=== PATIENT | male | born 2000 | race Caucasian/White ===

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

== ENCOUNTER 2021-07-20 01:26 | Emergency (ER) | payer OTHER ==
[2021-07-20] MEDS ORDERED: IPRATROPIUM-ALBUTEROL 3 ML NEB INHALATION STA (01:48)
[2021-07-20] MEDS ORDERED: methylPREDNISolone SOD SUCCI 125 MG/2 ML VIAL IV STA (01:49)
[2021-07-20 01:50] VITALS: RESP 22
--- NOTE | 2021-07-20 02:03 | ED ---
General Adult HPI - General Stated complaint: Asthma attack Time Seen by Provider: 07/20/21 01:48 Source: patient, RN notes reviewed Mode of arrival: ambulatory Limitations: no limitations - History of Present Illness Initial comments: This a 21-year-old male presents emergency Department chief complaint asthma issues. Patient states he started having tightness in his chest, difficulty with asthma does not have his inhaler. Patient states that he was at his family's house with cats in which she normally takes Claritin for the cat allergens were bothering him. Patient states that his been wheezing, severe tightness. Patient reports no fever or chills no productive cough. Patient denies any nasal congestion other complaints. - Related Data Home Medications Medication Instructions Recorded Confirmed Mirtazapine [Remeron] 30 mg PO HS 11/26/16 11/26/16 [place]-3 Fatty Acids/Fish Oil [Fish 1 cap PO DAILY 11/26/16 11/26/16 Oil 1,000 mg Softgel] QUEtiapine FUMARATE [SEROquel] 300 mg PO HS 11/26/16 11/26/16 QUEtiapine [SEROquel] 50 mg PO QAM 11/26/16 11/26/16 Previous Rx's Medication Instructions Recorded predniSONE 50 mg PO DAILY #5 tab 07/20/21 Allergies Allergy/AdvReac Type Severity Reaction Status Date / Time hydromorphone HCl Allergy Intermediate Rash/Hives/ Verified 07/20/21 01:47 [From Dilaudid] Itching metoclopramide HCl AdvReac Severe Anxiety Verified 07/20/21 01:47 [From Reglan] Review of Systems ROS Statement: Those systems with pertinent positive or pertinent negative responses have been documented in the HPI. ROS Other: All systems not noted in ROS Statement are negative. Past Medical History Past Medical History: Asthma Additional Past Medical History / Comment(s): RUPTURED APPENDEX 04/2015. cat allergies. History of Any Multi-Drug Resistant Organisms: None Reported Past Surgical History: Appendectomy, Tonsillectomy Past Psychological History: Anxiety, Depression, Schizophrenia Smoking Status: Never smoker Past Alcohol Use History: None Reported Past Drug Use History: None Reported - Past Family History Mother Family Medical History: No Reported History General Exam Limitations: no limitations General appearance: alert, in no apparent distress Head exam: Present: atraumatic, normocephalic, normal inspection Eye exam: Present: normal appearance, PERRL, EOMI. Absent: scleral icterus, conjunctival injection, periorbital swelling ENT exam: Present: normal exam, normal oropharynx, mucous membranes moist Neck exam: Present: normal inspection. Absent: tenderness, meningismus, lymphadenopathy Respiratory exam: Present: respiratory distress, wheezes, decreased breath sounds. Absent: normal lung sounds bilaterally, rales, rhonchi, stridor Cardiovascular Exam: Present: normal rhythm, tachycardia, normal heart sounds. Absent: systolic murmur, diastolic murmur, rubs, gallop, clicks GI/Abdominal exam: Present: soft, normal bowel sounds. Absent: distended, tenderness, guarding, rebound, rigid Neurological exam: Present: alert, oriented X3 Skin exam: Present: warm, dry, intact, normal color. Absent: rash Course Vital Signs 07/20/21 07/20/21 01:48 01:53 Temperature 98.2 F Pulse Rate 105 H 100 Respiratory 22 Rate Blood Pressure 123/86 O2 Sat by Pulse 90 L Oximetry Medical Decision Making - Medical Decision Making Chest x-rays unremarkable. Patient was given DuoNeb treatment, Solu-Medrol is greatly improved he has some mild residual wheezing states he does not feel short of breath. Patient we discharged with prednisone, albuterol return parameters were discussed. Disposition Clinical Impression: Asthma exacerbation Disposition: HOME SELF-CARE Condition: Stable Instructions (If sedation given, give patient instructions): Asthma (ED) Additional Instructions: Please return to the Emergency Department if symptoms worsen or any other concerns. Prescriptions: predniSONE 50 mg PO DAILY #5 tab Is patient prescribed a controlled substance at d/c from ED?: No Referrals: Jarrod Elizabeth III, MD [Primary Care Provider] - 1-2 days Time of Disposition: 02:51
--- NOTE | 2021-07-20 02:40 | XR ---
EXAMINATION TYPE: XR chest 2V DATE OF EXAM: 07/20/2021 COMPARISON: 05/16/2015 HISTORY: Short of breath TECHNIQUE: FINDINGS: Heart and mediastinum are normal. Lungs are clear. Diaphragm is normal. Bony thorax appears normal. IMPRESSION: Normal chest.
[2021-07-20] MEDS ORDERED: ALBUTEROL HFA INHALER INHALATION STA (02:50)
[2021-07-20 03:09] VITALS: BP 119/57; PULSE 93; TEMP 97.5
== END 2021-07-20 03:11 | disposition home or self-care (01) ==
LOC: EC 01:26
DX: J45.901 Unspecified asthma with (acute) exacerbation (principal); F32.A Depression, unspecified; F41.9 Anxiety disorder, unspecified; F20.9 Schizophrenia, unspecified; Z79.899 Other long term (current) drug therapy
CPT/HCPCS: 94640; 71046; 99285; 96374; J2930

== ENCOUNTER 2021-11-09 01:33 | Emergency (ER) | payer OTHER ==
[2021-11-09 01:52] VITALS: TEMP 98
[2021-11-09] MEDS ORDERED: FAMOTIDINE 20 MG/2 ML VIAL IV STA (01:59)
[2021-11-09] MEDS ORDERED: diphenhydrAMINE 50 MG/ML 1 ML VIAL IVP STA (01:59)
[2021-11-09] MEDS ORDERED: methylPREDNISolone SOD SUCCI 125 MG/2 ML VIAL IV STA ×2 (01:59→03:15)
[2021-11-09] MEDS ORDERED: ALBUTEROL NEB (CONC) 2.5 MG/0.5 ML INHALATION STA (02:19)
--- NOTE | 2021-11-09 02:48 | XR ---
EXAMINATION TYPE: XR chest 1V portable DATE OF EXAM: 11/09/2021 COMPARISON: 07/20/2021 HISTORY: Short of breath TECHNIQUE: FINDINGS: Heart and mediastinum are normal. Lungs are clear. Diaphragm is normal. Bony thorax appears normal. IMPRESSION: Normal chest. No change.
[2021-11-09 02:56] VITALS: RESP 18
[2021-11-09] MEDS ORDERED: IPRATROPIUM-ALBUTEROL 3 ML NEB INHALATION STA (03:15)
[2021-11-09] MEDS ORDERED: ALBUTEROL NEBULIZED 2.5 MG/3 ML INHALATION STA (03:18)
--- NOTE | 2021-11-09 03:32 | ED ---
Allergic Reaction HPI - General Chief complaint: Allergic Reaction Stated complaint: Shortness of Breath Time Seen by Provider: 11/09/21 03:11 Source: patient, RN notes reviewed Mode of arrival: ambulatory - History of Present Illness Initial Comments: This is a pleasant 21-year-old male with a history of ALLERGIES and asthma. Patient presents to the emergency department stating that he had a wheezing episode and difficulty breathing episode prior to arrival. Patient recently here to [place] stating that his mother is staying in a hotel where they allow pets docile state. Patient states he has a rather severe pet ALLERGY. Patient forgot his inhaler and was without it. Patient states he had fairly severe wheezing until he received a breathing treatment here. Patient states his symptoms are much improved after treatment. He denies any fever or chills. No productive cough. No headache, no fever or chills, no changes in vision or hearing, no sore throat or difficulty with speech, no neck pain, no shortness of breath, no abdominal pain, no nausea or vomiting, no changes in urination or bowel movements, no numbness or tingling, no extremity pain, no skin rashes or lesions. - Related Data Home Medications Medication Instructions Recorded Confirmed Mirtazapine [Remeron] 30 mg PO HS 11/26/16 11/26/16 [place]-3 Fatty Acids/Fish Oil [Fish 1 cap PO DAILY 11/26/16 11/26/16 Oil 1,000 mg Softgel] QUEtiapine FUMARATE [SEROquel] 300 mg PO HS 11/26/16 11/26/16 QUEtiapine [SEROquel] 50 mg PO QAM 11/26/16 11/26/16 Previous Rx's Medication Instructions Recorded predniSONE 50 mg PO DAILY #5 tab 07/20/21 Albuterol Sulfate [Albuterol 2 puff PO Q6H #8.5 gm 11/09/21 Sulfate Hfa] Famotidine [Pepcid] 20 mg PO BID #30 tablet 11/09/21 predniSONE 50 mg PO DAILY #5 tab 11/09/21 Allergies Allergy/AdvReac Type Severity Reaction Status Date / Time hydromorphone HCl Allergy Intermediate Rash/Hives/ Verified 11/09/21 01:46 [From Dilaudid] Itching metoclopramide HCl AdvReac Severe Anxiety Verified 11/09/21 01:46 [From Reglan] Review of Systems ROS Statement: Those systems with pertinent positive or pertinent negative responses have been documented in the HPI. ROS Other: All systems not noted in ROS Statement are negative. Past Medical History Past Medical History: Asthma Additional Past Medical History / Comment(s): RUPTURED APPENDEX 04/2015. cat allergies. History of Any Multi-Drug Resistant Organisms: None Reported Past Surgical History: Appendectomy, Tonsillectomy Past Psychological History: Anxiety, Depression, Schizophrenia Smoking Status: Never smoker Past Alcohol Use History: None Reported Past Drug Use History: None Reported - Past Family History Mother Family Medical History: No Reported History General Exam - General Exam Comments Initial Comments: This is a healthy-appearing 21-year-old male in no acute distress at the time I'm seeing him. Does not appear to be ill or toxic. General appearance: alert, in no apparent distress Head exam: Present: atraumatic, normocephalic, normal inspection Eye exam: Present: normal appearance, PERRL, EOMI. Absent: scleral icterus, conjunctival injection, periorbital swelling ENT exam: Present: normal exam, normal oropharynx, mucous membranes dry, mucous membranes moist, TM's normal bilaterally, normal external ear exam Neck exam: Present: normal inspection, full ROM. Absent: tenderness, meningismus, lymphadenopathy Respiratory exam: Present: wheezes (Fine expiratory wheezes heard bilaterally.). Absent: respiratory distress, rales, rhonchi, stridor, chest wall tenderness, accessory muscle use, decreased breath sounds, prolonged expiratory Cardiovascular Exam: Present: regular rate, normal rhythm, normal heart sounds. Absent: systolic murmur, diastolic murmur, rubs, gallop, clicks GI/Abdominal exam: Present: soft, normal bowel sounds. Absent: distended, tenderness, guarding, rebound, rigid Extremities exam: Present: normal inspection, full ROM, normal capillary refill. Absent: tenderness, pedal edema, joint swelling, calf tenderness Back exam: Present: normal inspection Neurological exam: Present: alert, oriented X3, CN II-XII intact Psychiatric exam: Present: normal affect, normal mood Skin exam: Present: warm, dry, intact, normal color. Absent: rash Course Vital Signs 11/09/21 11/09/21 11/09/21 01:47 02:11 02:31 Temperature 98 F Pulse Rate 91 78 Respiratory 20 26 H Rate Blood Pressure 110/68 O2 Sat by Pulse 96 Oximetry 11/09/21 11/09/21 11/09/21 02:39 03:01 03:43 Temperature Pulse Rate 79 75 78 Respiratory 18 Rate Blood Pressure 119/73 O2 Sat by Pulse 95 Oximetry Medical Decision Making - Medical Decision Making Patient symptomology consistent with mild asthma exacerbation. Patient was given nebulizer treatments and corticosteroids here. Patient feeling much better at discharge. No adventitious lung sounds. No increased work of breathing. We'll place the patient on prednisone, albuterol, will give Pepcid as well as patient does have some ALLERGIES. The case was discussed in detail with ED attending physician. Presentation, findings, treatment plan discussed in detail. Dr. Andrews Patient was told to return to the ER for any signs or symptoms worsen. Told to return immediately if any other problems arise. All questions answered. Treatment plan discussed. Patient in agreement Every effort has been made to ensure accuracy of this dictation. However, due to the limitations of electronic medical records and dictation devices, errors in charting still occur. - Radiology Data Radiology results: image reviewed Disposition Clinical Impression: Asthma exacerbation Disposition: HOME SELF-CARE Condition: Good Instructions (If sedation given, give patient instructions): Asthma (ED) Additional Instructions: Refraining from entering the area where known allergens or irritants are.Follow- up with your regular physician as directed. Return to the ER immediately if any symptoms worsen, new symptoms arise, or any other problems develop. Is patient prescribed a controlled substance at d/c from ED?: No Referrals: Jarrod Elizabeth III, MD [Primary Care Provider] - 1-2 days Time of Disposition: 03:52
[2021-11-09 04:10] VITALS: BP 119/79; PULSE 77
== END 2021-11-09 04:10 | disposition home or self-care (01) ==
LOC: EC 01:33
DX: J45.901 Unspecified asthma with (acute) exacerbation (principal); F32.A Depression, unspecified; F41.9 Anxiety disorder, unspecified; F20.9 Schizophrenia, unspecified; Z79.899 Other long term (current) drug therapy
CPT/HCPCS: 99284 ×2; 96374; 96375; 94640 ×2; 71045; J2930

== ENCOUNTER 2022-07-04 17:18 | Inpatient (IN) | payer BC, MEDICAID ==
--- NOTE | 2022-07-04 18:15 | ED ---
General Adult HPI - General Chief complaint: Psychiatric Symptoms Stated complaint: Petition Time Seen by Provider: 07/04/22 17:33 Source: patient Mode of arrival: ambulatory Limitations: no limitations - History of Present Illness Initial comments: Dictation was produced using [employer] dictation software. please excuse any grammatical, word or spelling errors. Chief Complaint: 22-year-old male presents emergency department for psych evaluation History of Present Illness: Patient's 22-year-old male presents to emergency Department via law enforcement for psychiatric evaluation. Patient is a previous history of schizophrenia. He last had a psychotic episode at the age of 15. Enforcement was called by patient's aunt who stated that patient had multiple days of psychotic behavior. Patient has no other complaints at this time. Patient allegedly has been insistent that people read his poem about God. The ROS documented in this emergency department record has been reviewed and confirmed by me. Those systems with pertinent positive or negative responses have been documented in the HPI. All other systems are other negative and/or noncontributory. PHYSICAL EXAM: General Impression: Alert and oriented x3, not in acute distress HEENT: Normocephalic atraumatic, extra-ocular movements intact, pupils equal and reactive to light bilaterally, mucous membranes moist. Cardiovascular: Heart regular rate and rhythm Chest: Able to complete full sentences, no retractions, no tachypnea Abdomen: abdomen soft, non-tender, non-distended, no organomegaly Musculoskeletal: Pulses present and equal in all extremities, no peripheral edema Motor: no focal deficits noted Neurological: CN II-XII grossly intact, no focal motor or sensory deficits noted Skin: Intact with no visualized rashes Psych: Psychotic, flat affect ED course: 22-year-old male presents emergency department for EPS evaluation. Vital signs upon arrival are within acceptable limits. Patient showing psychotic features. Rest of physical examination is unremarkable. Patient medically cleared for EPS evaluation. Nursing notes and chart review was performed - Related Data Home Medications Medication Instructions Recorded Confirmed Albuterol Sulfate [Albuterol 2 puff INHALATION RT-QID PRN 07/04/22 07/04/22 Sulfate Hfa] Allergies Allergy/AdvReac Type Severity Reaction Status Date / Time hydromorphone HCl Allergy Intermediate Rash/Hives/ Verified 07/04/22 19:33 [From Dilaudid] Itching metoclopramide HCl AdvReac Severe Anxiety Verified 07/04/22 19:33 [From Reglan] Review of Systems ROS Statement: Those systems with pertinent positive or pertinent negative responses have been documented in the HPI. ROS Other: All systems not noted in ROS Statement are negative. Past Medical History Past Medical History: Asthma Additional Past Medical History / Comment(s): RUPTURED APPENDEX 04/2015. cat allergies. History of Any Multi-Drug Resistant Organisms: None Reported Past Surgical History: Appendectomy, Tonsillectomy Past Psychological History: Anxiety, Depression, Schizophrenia Smoking Status: Never smoker Past Alcohol Use History: Occasional Past Drug Use History: None Reported - Past Family History Mother Family Medical History: No Reported History General Exam Limitations: no limitations Course Vital Signs 07/04/22 17:21 Temperature 98 F Pulse Rate 124 H Respiratory 18 Rate Blood Pressure 134/77 O2 Sat by Pulse 97 Oximetry Medical Decision Making - Medical Decision Making Admitted to mental health unit - Lab Data Result diagrams: 07/06/22 06:41 07/06/22 06:41 Lab Results 07/04/22 Range/Units 20:43 Coronavirus (PCR) Not Detected (Not Detectd) Disposition Clinical Impression: Psychosis Disposition: ADMITTED IP TO THIS HOSP Condition: Fair Decision Time: 14:35
[2022-07-04] MEDS ORDERED: HALOPERIDOL LACTATE 5 MG/ML 1 ML VIAL IM PRN (21:24)
[2022-07-04] MEDS ORDERED: ACETAMINOPHEN TAB 325 MG TAB PO PRN (21:24)
[2022-07-04] MEDS ORDERED: MAGNESIUM HYDROXIDE 2,400 MG/10 ML CUP PO PRN (21:24)
[2022-07-04] MEDS ORDERED: MAG HYDROX/AL HYDROX/SIMETH 355 ML BOTTLE PO PRN (21:24)
[2022-07-04] MEDS ORDERED: haloperidoL 5 MG TAB PO PRN (21:34)
[2022-07-04] MEDS ORDERED: LORazepam 2 MG/ML INJ IM PRN (21:35)
[2022-07-04] MEDS ORDERED: ALBUTEROL INHALER 60 PUFF/8 GM INHALER (MHU) INHALATION PRN (21:36)
[2022-07-04] MEDS ORDERED: QUEtiapine 100 MG TAB PO SCH (22:00)
[2022-07-05] MEDS: LORazepam 1 MG TAB PO PRN (02:42)
[2022-07-05] MEDS ORDERED: ARIPiprazole 10 MG TAB PO STA (11:02)
[2022-07-05] MEDS ORDERED: traZODone HCL 100 MG TAB PO PRN (11:02)
--- NOTE | 2022-07-05 11:59 | P.HP ---
Psychiatric H&P - . H&P Date: 07/05/22 History & Physical: Allergies Allergy/AdvReac Type Severity Reaction Status Date / Time hydromorphone HCl Allergy Intermediate Rash/Hives/ Verified 07/04/22 19:33 [From Dilaudid] Itching metoclopramide HCl AdvReac Severe Anxiety Verified 07/04/22 19:33 [From Reglan] Vital Signs Temp 98.5 F 07/04/22 22:29 Pulse 117 H 07/04/22 22:29 Resp 18 07/04/22 22:29 BP 143/77 07/04/22 22:29 Pulse Ox 97 07/04/22 22:29 FiO2 Intake & Output 07/04/22 07/05/22 07/05/22 18:59 06:59 18:59 Weight 74.843 kg 76.43 kg Laboratory Last Values Coronavirus (PCR) Not Detected (Not Detectd) 07/04/22 20:43 07/05/22 11:58 IDENTIFYING DATA: Patient is a single, unemployed, 22-year-old male with significant history of schizoaffective disorder who presents to our hospital under petition and certification for psychotic and manic behavior. HPI: Patient presented to the hospital on 07/04/2022, brought into the hospital by family for worsening psychotic and manic behavior. Reportedly, the patient has been nonadherent with his medications since last October. The patient was reportedly receiving Abilify Aristada injection 1064 mg every 2 months but due to work scheduling conflicts has been nonadherent with his outpatient appointments, medications, and follow-ups. Over the past few months, the patient has had a significant decline in his mental health. As per EPS report, the patient was noted to be religiously preoccupied, "writing poems that Satan put in his head about God, and believing that he himself was the antichrist." The patient was subsequently petitioned and certified and admitted onto the psychiatric unit. The patient signed a release of information for his sister, mother, and father. Collateral information was obtained by the patient's mother Lynn whom he lives with. The patient's mother reports that the patient has had a significant decline in his ability to function over the past few months. She reports that around the Fall time he began decompensating. It initially started with an inability to focus, then later progressed to mormon and paranoid delusions, and eventually into the manic and psychotic symptoms he was admitted with. 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 The patient's mother also reports that the patient has not been sleeping. She approximates that he has only received 3 hours of sleep over the past week. The patient has also been displaying significant manic behaviors including grandiosity, mood lability, racing thoughts, ideas of reference, and impulsive and risk-taking behaviors. The patient destroyed his laptop and was attempting to destroy his phone however was stopped by his family. In the process of destroying his laptop, the patient was reported saying "don't worry will just buy more." The patient's mother maintains they do not have the finances to buy more. Upon evaluation on the psychiatric unit, the patient continues to be religiously preoccupied. He did receive Seroquel and Ativan last night and reports that he feels "groggy." He states that he was unable to sleep well. He continues to report that he is hearing the voice of God and Satan. Furthermore, the patient states that he is worried about being treated for bipolar disorder because he does not want people to know that the poem that he wrote was because he was manic but really was something that he was feeling instead. He is in agreement to take medications and to sign himself voluntarily on to the psychiatric unit. PAST PSYCHIATRIC HISTORY: Patient first began experiencing psychotic symptoms when he was 15 years of age. He has tried numerous psychiatric medications including Remeron, lithium, Seroquel, ADHD medications, and Abilify. He reports that he has had at least 4 inpatient psychiatric hospitalizations starting when he was 15 years old at [facility]. He is currently not open with [facility] due to his nonadherence with outpatient follow-up. The patient reports 2 prior attempts at suicide by hanging. He states he attempted to hang himself when he was 15 and again when he was 17. PMH: Past Medical History: Asthma Additional Past Medical History / Comment(s): RUPTURED APPENDEX 04/2015. cat allergies. History of Any Multi-Drug Resistant Organisms: None Reported Past Surgical History: Appendectomy, Tonsillectomy Past Psychological History: Anxiety, Depression, Schizophrenia Smoking Status: Never smoker Past Alcohol Use History: Occasional Past Drug Use History: None Reported ALLERGIES: Hydromorphone, metoclopramide CHEMICAL DEPENDENCY HISTORY: The patient denies any tobacco, alcohol, marijuana, or illicit drug use. This is also confirmed by his mother. FAMILY PSYCHIATRIC/SUBSTANCE USE HISTORY: As per mother, there is no significant history of psychiatric illness in the family. SOCIAL HISTORY: Patient was born and raised in [place]. He completed up to the 10th grade. He is single, never , and has no children. He reports a [employer] amena. He currently lives with his mother, 2 sisters, and 2 half- brothers. His mother and father are currently . 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 MENTAL STATUS EXAM: General Appearance: Patient appears to be stated age is alert, directable, and attempts to cooperate. Patient appears to have slightly disheveled hygiene and grooming. Behavior: Patient is seated without any agitated behavior. Psychomotor activity is normal. Eye contact is intense. Speech: Patient's speech is fluent and nonpressured. Mood/Affect: Patient reports their mood is "groggy," affect is congruent however somewhat expansive. Suicidality/Homicidality: Patient is denying both suicidal or homicidal ideation. Perceptions: Patient denies any visual hallucinations however the patient does endorse auditory hallucinations in the form of God and Satan talking to him. Though content/process: The patient displays significant mormon practice patient, grandiose delusions, religiously themed delusions, and the flight of ideas. Memory and concentration: AOX3, grossly intact for the purposes of this session. Concentration is grossly poor. Judgment and insight: Poor STRENGTHS/WEAKNESSES: Strength is that the patient has a supportive family. Weakness the patient has severe mental illness and nonadherence with treatment. INTELLECT: average IMPRESSIONS: Schizoaffective disorder, bipolar type PLAN: -Patient is admitted under voluntary status to MHU for stabilization of psychiatric symptoms and safety. Patient signed adult voluntary form and medication consent and is placed in patient's chart. -Medications: We will start Abilify 10 mg by mouth daily with plans to transition him back to Abilify maintena/[facility] for schizoaffective disorder Lamictal 25 mg daily at bedtime for mood Requip 0.25 mg by mouth at bedtime for restless leg Trazodone 100 mg by mouth at bedtime when necessary for insomnia -Ativan Haldol PRN for agitation/aggression -Patient was informed of the risks, benefits and side effects of the medication and patient verbally consented to taking the medications. Patient signed med consent form and was placed in chart. -Internal Medicine consult to perform medical evaluation and physical. -SW on board for discharge planning. Encourage patient to participate in groups to work on coping skills. 07/05/22 11:58
[2022-07-05] MEDS: lamoTRIgine 25 MG TAB PO SCH (20:49)
--- NOTE | 2022-07-05 23:34 | P.HPIM ---
History of Present Illness H&P Date: 07/05/22 This is a pleasant 22 year old male who follows with Dr Elizabeth outpatient. Presents to the hospital by police escort for psychiatric evaluation, petitioned. 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 States that since then he has been wr iting a novel. He also reports hearing intruding thoughts about "going to hell" around that same time. He states he wrote a poem and god and delivering a message he received from god. He states he showed the poem to his mom and aunt. who called the police who then escorted him to the hospital. He states he did yell at the officer and was "overly excited." He reports a medical history of an appendix rupture with appendectomy, history of allergy induced asthma controlled with inhaler. He reports being diagnosed as ADHD around the age of 9, he does state that he has a diagnosis of bipolar disorder and schizoaffective. He has been non compliant in the past. He discusses noncompliance with psychiatric medications. Reports restless leg syndrome which he states is sometimes uncontrolled with requipd. Also reports having anxiety, and also social anxiety. Has a history of suicide attempt by hanging twice in the past. He reports occasional alcohol use, nothing recently. Denies history of tobacco use or marijuana use. Currently he is not working, states he lives with his mom and stepdad and has multiple siblings. He doesn't seem to endorse a good relationship with his siblings. Some are half siblings. He states he feels wheezy sometimes but now better since he was able to use his inhaler. Denies shortness of breath, denies chest pain. No nausea, vomiting, no diarrhea. Denies fever, chills. He denies suicidal or homicidal ideations. Continues to hear voices of God and Satan. He does report trouble sleeping last night and had requested medication to help. Since he states he has been mostly sleeping all day. Afebrile, heart rate 117, blood pressure 143/77, 97% room air. REVIEW OF SYSTEMS: CONSTITUTIONAL: No fever, no malaise, no fatigue. HEENT: No recent visual problems or hearing problems. Denied any sore throat. CARDIOVASCULAR: No chest pain, orthopnea, PND, no palpitations, no syncope. PULMONARY: No shortness of breath, no cough, no hemoptysis. GASTROINTESTINAL: No diarrhea, no nausea, no vomiting, no abdominal pain. NEUROLOGICAL: No headaches, no weakness, no numbness. HEMATOLOGICAL: Denies any bleeding or petechiae. GENITOURINARY: Denies any burning micturition, frequency, or urgency. MUSCULOSKELETAL/RHEUMATOLOGICAL: Denies joint pain, joint swelling, or edema. ENDOCRINE: Denies any polyuria or polydipsia. The rest of the 14-point review of systems is negative. PHYSICAL EXAMINATION: GENERAL: The patient is alert and oriented x3, not in any acute distress. Well developed, well nourished. Somewhat dishelved apperance. Speech is fluent. Patients is mostly religiously preoccupied during interview. HEENT: Pupils are round and equally reacting to light. EOMI. No scleral icterus. No conjunctival pallor. Normocephalic, atraumatic. No pharyngeal erythema. No thyromegaly. CARDIOVASCULAR: S1 and S2 present. No murmurs, rubs, or gallops. Regular rate and rhythm PULMONARY: Chest is clear to auscultation, no wheezing or crackles. ABDOMEN: Soft, nontender, nondistended, normoactive bowel sounds. No palpable organomegaly. MUSCULOSKELETAL: No joint swelling or deformity. EXTREMITIES: No cyanosis, clubbing, or pedal edema. NEUROLOGICAL: Gross neurological examination did not reveal any focal deficits. SKIN: No rashes. Assessment and Plan Assessment Bipolar/Schizoaffective disorder managed by primary Tachycardia suspect from anxiety, continue to monitor Anxiety/depression history History asthma, stable not in acute exacerbation patient will be resumed on home inhaler Medication noncompliance History of suicidal ideation with attempt GI prophylaxis DVT prophylaxis early ambulation Full Code AM labs and urine/drug screen pending for review. Thank you for this consultation, we will follow along as needed. The impression and plan of care has been dictated by Maureen Baldwin, Nurse Practitioner as directed. Dr. Carlos MD I have performed a history and physical examination and medical decision making of this patient, discussed the same with the dictator, and agree with the dictators assessment and plan as written, documented as a scribe. Based on total visit time, I have performed more than 50% of this visit. Past Medical History Past Medical History: Asthma Additional Past Medical History / Comment(s): RUPTURED APPENDEX 04/2015. cat allergies. History of Any Multi-Drug Resistant Organisms: None Reported Past Surgical History: Appendectomy, Tonsillectomy Past Psychological History: Anxiety, Depression, Schizophrenia Additional Psychological History / Comment(s): seeing a counselor for anxiety and adjustment Smoking Status: Never smoker Past Alcohol Use History: Occasional Past Drug Use History: None Reported - Past Family History Mother Family Medical History: No Reported History Medications and Allergies Home Medications Medication Instructions Recorded Confirmed Type Albuterol Sulfate [Albuterol 2 puff INHALATION RT-QID PRN 07/04/22 07/04/22 History Sulfate Hfa] Allergies Allergy/AdvReac Type Severity Reaction Status Date / Time hydromorphone HCl Allergy Intermediate Rash/Hives/ Verified 07/04/22 19:33 [From Dilaudid] Itching metoclopramide HCl AdvReac Severe Anxiety Verified 07/04/22 19:33 [From Reglan] Physical Exam Vitals: Vital Signs Temp Pulse Pulse Resp BP BP Pulse Ox 07/04/22 22:29 98.5 F 117 H 18 143/77 97 07/04/22 17:21 98 F 124 H 18 134/77 97 Thrombosis Risk Factor Assmnt - Choose All That Apply Any of the Below Risk Factors Present?: No Assessment and Plan Time with Patient: Less than 30
[2022-07-06] MEDS: LORazepam 1 MG TAB PO PRN (00:46)
[2022-07-06 07:02] LABS: Basophils # (A) 0.1 k/uL (0-0.2); Basophils % (A) 1 %; Eosinophils # (A) 0.6 k/uL (0-0.7); Eosinophils % (A) 7 %; HCT 52.2 % (39.0-53.0); HGB 17.7 gm/dL (13.0-17.5); Lymphocytes % (A) 34 %; MCH 29.6 pg (25.0-35.0); MCV 87.1 fL (80.0-100.0); Mean Platelet Volume 8.3; Monocytes # (A) 0.6 k/uL (0-1.0); Monocytes % (A) 7 %; Neutrophils # (A) 4.2 k/uL (1.3-7.7); Neutrophils % (A) 48 %; Platelet Count 216 k/uL (150-450); RDW 12.5 % (11.5-15.5); WBC 8.7 k/uL (3.8-10.6)
[2022-07-06 07:59] LABS: ALT 26 U/L (4-49); AST 29 U/L (17-59); African American GFR (CKD) >90 (>60 ml/min/1.73 sqM); Albumin 4.7 g/dL (3.5-5.0); Alkaline Phosphatase 56 U/L (38-126); Anion Gap 6 mmol/L; Blood Urea Nitrogen 19 mg/dL (9-20); Calcium 9.2 mg/dL (8.4-10.2); Carbon Dioxide 30 mmol/L (22-30); Chloride 105 mmol/L (98-107); Glucose 83 mg/dL (74-99); Non-African American GFR(CKD) >90 (>60 ml/min/1.73 sqM); Potassium 4.4 mmol/L (3.5-5.1); Sodium 141 mmol/L (137-145); Total Bilirubin 0.6 mg/dL (0.2-1.3); Total Protein 6.9 g/dL (6.3-8.2)
[2022-07-06] MEDS ORDERED: ARIPiprazole 15 MG TAB PO SCH (09:00)
--- NOTE | 2022-07-06 10:07 | P.PN ---
Progress Note - Text Progress Note Date: 07/06/22 Interval History: Patient was seen resting in bed and agreeable to speak with the grant writer in the office. Currently the patient is reporting he is feeling better. He states he continues to have difficulty with sleep and reports it takes him hours to fall asleep. He denies any suicidal or homicidal ideation, intention, and/or plan. He continues to be religiously preoccupied stating that "God has told me through the poem that the voices I hear outside of the poem are not Him." He denies any current auditory or visual hallucinations since admission. He reports no paranoia but continues to be fixated on the "poem" and baptism themes. He has been adherent with his medications and is not reporting any side effect. Mental Status Exam: General Appearance: Patient appears to be stated age is alert, directable, and cooperative. Behavior: Patient is calmly seated without any agitated behavior. Speech: Patient's speech is fluent and nonpressured. Mood/Affect: Mood is improving mildly, affect is congruent and constricted. Suicidality/Homicidality: Patient denies having any suicidal or homicidal ideation intent or plan. Perceptions: Patient denies any visual hallucinations and denies any auditory hallucinations Though content/process: Patient continues to be very religiously preoccupied and endorses bizarre and grandiose delusions. Memory and concentration: AOX3, grossly intact for the purposes of this session Judgment and insight: Improving mildly Vital Signs Temp 97.8 F 07/06/22 00:46 Pulse 116 H 07/06/22 00:46 Resp 16 07/06/22 00:46 BP 136/90 07/06/22 00:46 Pulse Ox 98 07/06/22 00:46 FiO2 Laboratory Results - Last 24 Hours 07/06/22 07/06/22 06:41 06:41 WBC 8.7 RBC 6.00 H Hgb 17.7 H Hct 52.2 MCV 87.1 MCH 29.6 MCHC 34.0 RDW 12.5 Plt Count 216 MPV 8.3 Neutrophils % 48 Lymphocytes % 34 Monocytes % 7 Eosinophils % 7 Basophils % 1 Neutrophils # 4.2 Lymphocytes # 3.0 Monocytes # 0.6 Eosinophils # 0.6 Basophils # 0.1 Sodium 141 Potassium 4.4 Chloride 105 Carbon Dioxide 30 Anion Gap 6 BUN 19 Creatinine 1.08 Est GFR (CKD-EPI)AfAm >90 Est GFR (CKD-EPI)NonAf >90 Glucose 83 Calcium 9.2 Total Bilirubin 0.6 AST 29 ALT 26 Alkaline Phosphatase 56 Total Protein 6.9 Albumin 4.7 TSH 1.340 Assessment Schizoaffective disorder, bipolar type Plan: -Patient continues to meet criteria for inpatient psychiatric admission for symptom stabilization and safety. Patient has signed adult voluntary form and medication consent and was placed in patient's chart. -Medications: Increase Abilify to 15 mg daily for schizoaffective disorder and titrate to 20 mg tomorrow in anticipation for [facility] transition. Lamictal 25 mg daily at bedtime for mood Requip 0.25 mg by mouth at bedtime for restless leg Increase trazodone to 150 mg by mouth at bedtime when necessary for insomnia -When necessary Ativan and Haldol for agitation/aggression. -SW on board for discharge planning. Encouraged the patient to participate in milieu.
[2022-07-06 14:53] LABS: Chol/HDL Ratio 2.35 Ratio; LDL Cholesterol,Calculated 39.4 mg/dL (0.0-131.0); VLDL Calculation 18.72 mg/dL (5.00-40.00)
[2022-07-06] MEDS: lamoTRIgine 25 MG TAB PO SCH (19:56)
[2022-07-06] MEDS: traZODone HCL 50 MG TAB PO PRN (19:56)
[2022-07-07] MEDS: traZODone HCL 50 MG TAB PO PRN (00:44)
--- NOTE | 2022-07-07 09:41 | P.PN ---
Progress Note - Text Progress Note Date: 07/07/22 Interval History: Patient was seen resting in bed and agreeable to speak with the production underwriter in the office. The patient reports he is feeling significantly better. He reports no suicidal or homicidal ideation, intention, and/or plan. He reports no auditory or visual hallucinations. He reports no paranoia. He does report some ideas of reference however states the messages from God to him are not just for him but for everybody. He states the messages come through the television and radio. He otherwise has been adherent with his medications and reports no side effects. He states he was able to sleep better with the Trazodone. He is in agreement with plans to get back on abilify [facility]. Patient denies any chest pain, SOB, or palpitations however does have an elevated pulse. Mental Status Exam: General Appearance: Patient appears to be stated age is alert, directable, and cooperative. Behavior: Patient is calmly seated without any agitated behavior. Speech: Patient's speech is fluent and nonpressured. Mood/Affect: Mood is improving mildly, affect is congruent and less constricted. Suicidality/Homicidality: Patient denies having any suicidal or homicidal ideation intent or plan. Perceptions: Patient denies any visual hallucinations and denies any auditory hallucinations Though content/process: Patient continues to be adventist preoccupied but more grounded in reality. Memory and concentration: AOX3, grossly intact for the purposes of this session Judgment and insight: Improving mildly Vital Signs Temp 97.8 F 07/06/22 00:46 Pulse 116 H 07/06/22 00:46 Resp 16 07/06/22 00:46 BP 136/90 07/06/22 00:46 Pulse Ox 98 07/06/22 00:46 FiO2 Laboratory Results - Last 24 Hours 07/06/22 07/06/22 06:41 06:[address] Glu mg/dL 101 Hemoglobin A1c 5.1 Triglycerides 93.60 Cholesterol 101.00 LDL Cholesterol, Calc 39.4 VLDL Cholesterol, Calc 18.72 HDL Cholesterol 42.90 Cholesterol/HDL Ratio 2.35 Assessment Schizoaffective disorder, bipolar type Plan: -Patient continues to meet criteria for inpatient psychiatric admission for symptom stabilization and safety. Patient has signed adult voluntary form and medication consent and was placed in patient's chart. -Will order EKG to assess tachycardia. -Medications: Increase Abilify to 20 mg in anticipation for [facility] transition. Increase Lamictal to 50 mg daily at bedtime for mood Requip 0.25 mg by mouth at bedtime for restless leg Increase trazodone to 200 mg by mouth at bedtime for insomnia -When necessary Ativan and Haldol for agitation/aggression. -SW on board for discharge planning. Encouraged the patient to participate in milieu.
[2022-07-07] MEDS: traZODone HCL 100 MG TAB PO SCH (20:41)
[2022-07-07] MEDS: lamoTRIgine 25 MG TAB PO SCH (20:41)
[2022-07-07] MEDS: LORazepam 1 MG TAB PO PRN (21:48)
[2022-07-08 06:46] VITALS: RESP 18; TEMP 98.1
[2022-07-08] MEDS ORDERED: ARIPiprazole IM 400 MG VIAL (NO COST) PHARMACY STOCK IM ONE (09:45)
[2022-07-08] MEDS ORDERED: ARIPiprazole IM SYRINGE 400 MG (NO CHARGE) PHARMACY STOCK IM ONE (10:00)
--- NOTE | 2022-07-08 10:56 | P.PN ---
Progress Note - Text Progress Note Date: 07/08/22 Interval History: Patient was seen resting in bed and agreeable to speak with the sports writer in the office. The patient reports that he is doing well. He is tolerating his medications well. He continues to report some difficulty with sleep however is not endorsing any suicidal or homicidal ideation, intention, and/or plan. He reports no auditory or visual hallucinations. He denies any paranoia or other delusions. He has been in adherent with his medication and is not endorsing any significant side effects. He reports no confucianism preoccupation to this provider today. He has been noted to speak of mormonism to other peers however did not mention any to staff. He is agreeable to his transition to a long- acting injectable today. Mental Status Exam: General Appearance: Patient appears to be stated age is alert, directable, and cooperative. Behavior: Patient is calmly seated without any agitated behavior. Speech: Patient's speech is fluent and nonpressured. Mood/Affect: Mood is improving mildly, affect is congruent and less constricted. Suicidality/Homicidality: Patient denies having any suicidal or homicidal ideation intent or plan. Perceptions: Patient denies any visual hallucinations and denies any auditory hallucinations Though content/process: Patient continues to be confucianism preoccupied but more grounded in reality. Memory and concentration: AOX3, grossly intact for the purposes of this session Judgment and insight: Improving mildly Vital Signs Temp 98.1 F 07/08/22 06:46 Pulse 71 07/08/22 06:46 Resp 18 07/08/22 06:46 BP 122/57 07/08/22 06:46 Pulse Ox 98 07/08/22 06:46 FiO2 Assessment Schizoaffective disorder, bipolar type Plan: -Patient continues to meet criteria for inpatient psychiatric admission for symptom stabilization and safety. Patient has signed adult voluntary form and medication consent and was placed in patient's chart. -EKG revealed normal sinus rhythm with a QTC of 413 ms. Vitals stable today. -Medications: Continue Abilify 20 mg by mouth daily. Administer Abilify maintena 400 mg IM today. Continue Lamictal 50 mg daily at bedtime for mood Increase Requip to 0.5 mg by mouth at bedtime for restless leg Continue trazodone 200 mg by mouth at bedtime for insomnia -When necessary Ativan and Haldol for agitation/aggression. -SW on board for discharge planning. Encouraged the patient to participate in milieu.
[2022-07-08] MEDS ORDERED: MAG HYDROX/AL HYDROX/SIMETH 30 ML CUP PO PRN (16:49)
[2022-07-08] MEDS: traZODone HCL 100 MG TAB PO SCH (20:07)
[2022-07-08] MEDS: lamoTRIgine 25 MG TAB PO SCH (20:07)
[2022-07-09 06:13] VITALS: BP 119/63; PULSE 98
--- NOTE | 2022-07-09 11:16 | P.DS ---
Providers Date of admission: 07/04/22 21:19 Expected date of discharge: 07/09/22 Attending physician: Don Varela MD Consults: 07/04/22 21:24 Consult Physician Routine Consulting Provider: Rancho Vo Consult Reason/Comments: medical management Do you want consulting provider notified?: Yes, Notify in am Primary care physician: Jarrod Elizabeth - Discharge Diagnosis(es) (1) Schizoaffective disorder, bipolar type Current Visit: Yes Status: Acute Priority: High Hospital Course: Admission HPI: Patient is a single, unemployed, 22-year-old male with significant history of schizoaffective disorder who presents to our hospital under petition and certification for psychotic and manic behavior. Patient presented to the hospital on 07/04/2022, brought into the hospital by family for worsening psychotic and manic behavior. Reportedly, the patient has been nonadherent with his medications since last October. The patient was reportedly receiving Abilify Aristada injection 1064 mg every 2 months but due to work scheduling conflicts has been nonadherent with his outpatient appointments, medications, and follow-ups. Over the past few months, the patient has had a significant decline in his mental health. As per EPS report, the patient was noted to be religiously preoccupied, "writing poems that Satan put in his head about God, and believing that he himself was the antichrist." The patient was subsequently petitioned and certified and admitted onto the psychiatric unit. The patient signed a release of information for his sister, mother, and father. Collateral information was obtained by the patient's mother Lynn whom he lives with. The patient's mother reports that the patient has had a significant decline in his ability to function over the past few months. She reports that around the Fall time he began decompensating. It initially started with an inability to focus, then later progressed to spiritism and paranoid delusions, and eventually into the manic and psychotic symptoms he was admitted with. 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 The patient's mother also reports that the patient has not been sleeping. She approximates that he has only received 3 hours of sleep over the past week. The patient has also been displaying significant manic behaviors including grandiosity, mood lability, racing thoughts, ideas of reference, and impulsive and risk-taking behaviors. The patient destroyed his laptop and was attempting to destroy his phone however was stopped by his family. In the process of destroying his laptop, the patient was reported saying "don't worry will just buy more." The patient's mother maintains they do not have the finances to buy more. Upon evaluation on the psychiatric unit, the patient continues to be religiously preoccupied. He did receive Seroquel and Ativan last night and reports that he feels "groggy." He states that he was unable to sleep well. He continues to report that he is hearing the voice of God and Satan. Furthermore, the patient states that he is worried about being treated for bipolar disorder because he does not want people to know that the poem that he wrote was because he was man ic but really was something that he was feeling instead. He is in agreement to take medications and to sign himself voluntarily on to the psychiatric unit. Patient first began experiencing psychotic symptoms when he was 15 years of age. He has tried numerous psychiatric medications including Remeron, lithium, Seroquel, ADHD medications, and Abilify. He reports that he has had at least 4 inpatient psychiatric hospitalizations starting when he was 15 years old at [facility]. He is currently not open with [facility] due to his nonadherence with outpatient follow-up. The patient reports 2 prior attempts at suicide by hanging. He states he attempted to hang himself when he was 15 and again when he was 17. Hospital course: Upon admission to the unit patient was initially very religiously preoccupied, not sleeping, and responding to internal stimuli. Patient was however directable and agreeable to commence treatment. Patient got along well with other patients on the unit and followed unit protocol. Patient was compliant with the medications and denied any side effects throughout hospital course. Patient was started on Abilify with plans to transition back to a long-acting injectable A bilify maintena, Lamictal for mood stabilization, Requip for restless leg, and trazodone for insomnia. Patient spoke of his stressors and engaged in therapy both group and individual. Patient was also seen by medical team for history and physical exam. The patient was eventually transitioned back to Abilify maintena after his medications were titrated. He received IM abilify maintena 400 mg IM on 07/08/2022. Throughout the course of the hospital physician, the patient is with significant improvement in regards to his target symptoms of psychosis and mood. He became more linear and logical in conversation and less religiously preoccupied and delusional. On the day of discharge, the patient is not reporting any suicidal or homicidal ideation, intention, and/or plan. He is not reporting any auditory or visual hallucinations. He is denying any paranoia or other delusions. He denies any access to firearms or weapons. The patient does not have a significant history of substance abuse however was counseled great length on abstaining from all substances including alcohol, tobacco, marijuana. He was counseled on his medications and the importance for regular compliance and was encouraged to follow-up with outpatient appointment for mental health and for primary care. Prior to discharge, family meeting was arranged by social research assistant to answer my questions and ensure safety. Mental status exam: General Appearance: Patient appears to be stated age is alert, pleasant, and cooperative. Patient is in no acute distress and has fair hygiene and grooming Behavior: Patient is calmly seated without any agitated behavior. Speech: Patient's speech is fluent and nonpressured. Mood/Affect: Patient reports their mood is "much better", affect is congruent and euthymic to bright. Suicidality/Homicidality: Patient denies having any suicidal or homicidal ideation intent or plan. Perceptions: Patient denies any auditory or visual hallucinations. Though content/process: There is no evidence of any delusional thought content and thought process is linear and goal-directed. Patient is future oriented Memory and concentration: AOX3, grossly intact for the purposes of this session. Can spell "WORLD" backwards correctly. Judgment and insight: Improved with guarded prognosis Impression: Schizoaffective disorder, bipolar type Plan: -Continue with discharge today as patient has improved and stabilized psychiatrically and is not currently an imminent threat to himself and/or others. Patient will remain at chronically elevated risk for harm to self and/or others due to his history of nonadherence with treatment and severity of symptoms. -Continue medications: Trazodone 200 mg daily at bedtime for insomnia Lamictal 50 mg by mouth at bedtime for mood Requip 0.5 mg by mouth at bedtime for restless legs Abilify 20 mg by mouth daily for 15 days. Patient received Abilify maintena 400 mg IM on 07/08/2022. Next dose due on 08/05/2022. -Patient was counseled on the need for medication compliance and appropriate follow-up at mental health and also primary care for medical issues. Patient verbalized understanding and agreed. -Social work to arrange for and conduct family meeting to ensure safety upon discharge and answer any questions/concerns. Social work also to arrange for patients follow up appointments with [facility] for psychiatric care along with follow up with primary care provider. -Patient counseled on abstaining from recreational drugs and marijuana and alcohol. Was informed/educated on the adverse effects on their physical and mental health. Patient verbally agreed and understood. -Patient was instructed to return to the hospital or seek immediate medical care if their psychiatric or medical symptoms do worsen or reoccur. -Psychoeducation and supportive therapy provided to patient. Risks and benefits of pharmacological treatment versus the risks and benefits of nontreatment weight and discussed. Informed consent discussion held. Common side effects of psychotropics discussed such as, but not limited to headache, GI disturbance, sexual dysfunction, movement disorders, sedation, and orthostatic hypotension. Life threatening and blackbox warnings of prescribed medications also discussed. Potential risks of operating a vehicle or heavy machinery discussed with patient at length. Advised on importance of compliance and a reliable and responsible manner. Patient advised to review FDA consumer labeling of all medications prior to taking. Patient verbalized understanding of potential risks, and agrees with current treatment plan. Patient advised to medically contact physician/emergency personnel if any acute changes in condition occur. Vital Signs Temp 98.1 F 07/08/22 06:46 Pulse 98 07/09/22 04:30 Resp 18 07/09/22 04:30 BP 119/63 07/09/22 04:30 Pulse Ox 99 07/09/22 04:30 FiO2 Laboratory Results WBC 8.7 k/uL (3.8-10.6) 07/06/22 06:41 RBC 6.00 m/uL (4.30-5.90) H 07/06/22 06:41 Hgb 17.7 gm/dL (13.0-17.5) H 07/06/22 06:41 Hct 52.2 % (39.0-53.0) 07/06/22 06:41 MCV 87.1 fL (80.0-100.0) 07/06/22 06:41 MCH 29.6 pg (25.0-35.0) 07/06/22 06:41 MCHC 34.0 g/dL (31.0-37.0) 07/06/22 06:41 RDW 12.5 % (11.5-15.5) 07/06/22 06:41 Plt Count 216 k/uL (150-450) 07/06/22 06:41 MPV 8.3 07/06/22 06:41 Neutrophils % 48 % 07/06/22 06:41 Lymphocytes % 34 % 07/06/22 06:41 Monocytes % 7 % 07/06/22 06:41 Eosinophils % 7 % 07/06/22 06:41 Basophils % 1 % 07/06/22 06:41 Neutrophils # 4.2 k/uL (1.3-7.7) 07/06/22 06:41 Lymphocytes # 3.0 k/uL (1.0-4.8) 07/06/22 06:41 Monocytes # 0.6 k/uL (0-1.0) 07/06/22 06:41 Eosinophils # 0.6 k/uL (0-0.7) 07/06/22 06:41 Basophils # 0.1 k/uL (0-0.2) 07/06/22 06:41 Sodium 141 mmol/L (137-145) 07/06/22 06:41 Potassium 4.4 mmol/L (3.5-5.1) 07/06/22 06:41 Chloride 105 mmol/L (98-107) 07/06/22 06:41 Carbon Dioxide 30 mmol/L (22-30) 07/06/22 06:41 Anion Gap 6 mmol/L 07/06/22 06:41 BUN 19 mg/dL (9-20) 07/06/22 06:41 Creatinine 1.08 mg/dL (0.66-1.25) 07/06/22 06:41 Est GFR (CKD-EPI)AfAm >90 (>60 ml/min/1.73 sqM) 07/06/22 06:41 Est GFR (CKD-EPI)NonAf >90 (>60 ml/min/1.73 sqM) 07/06/22 06:41 Glucose 83 mg/dL (74-99) 07/06/22 06:[address] Glu mg/dL 101 07/06/22 06:41 Hemoglobin A1c 5.1 % (0.0-6.0) 07/06/22 06:41 Calcium 9.2 mg/dL (8.4-10.2) 07/06/22 06:41 Total Bilirubin 0.6 mg/dL (0.2-1.3) 07/06/22 06:41 AST 29 U/L (17-59) 07/06/22 06:41 ALT 26 U/L (4-49) 07/06/22 06:41 Alkaline Phosphatase 56 U/L (38-126) 07/06/22 06:41 Total Protein 6.9 g/dL (6.3-8.2) 07/06/22 06:41 Albumin 4.7 g/dL (3.5-5.0) 07/06/22 06:41 Triglycerides 93.60 mg/dL (0.00-149.00) 07/06/22 06:41 Cholesterol 101.00 mg/dL (0.00-200.00) 07/06/22 06:41 LDL Cholesterol, Calc 39.4 mg/dL (0.0-131.0) 07/06/22 06:41 VLDL Cholesterol, Calc 18.72 mg/dL (5.00-40.00) 07/06/22 06:41 HDL Cholesterol 42.90 mg/dL (40.00-60.00) 07/06/22 06:41 Cholesterol/HDL Ratio 2.35 Ratio 07/06/22 06:41 TSH 1.340 mIU/L (0.465-4.680) 07/06/22 06:41 Coronavirus (PCR) Not Detected (Not Detectd) 07/04/22 20:43 Allergies Allergy/AdvReac Type Severity Reaction Status Date / Time hydromorphone HCl Allergy Intermediate Rash/Hives/ Verified 07/04/22 19:33 [From Dilaudid] Itching metoclopramide HCl AdvReac Severe Anxiety Verified 07/04/22 19:33 [From Reglan] Patient Condition at Discharge: Stable Plan - Discharge Summary Discharge Rx Participant: Yes New Discharge Prescriptions: New ARIPiprazole [Abilify] 20 mg PO DAILY 15 Days tab traZODone HCL [Desyrel] 200 mg PO HS 30 Days tab lamoTRIgine [LaMICtal] 50 mg PO HS 30 Days tab rOPINIRole HCL [Requip] 0.5 mg PO HS 30 Days tab ARIPiprazole IM [Abilify Maintena] 400 mg IM QMONTHLY #1 each Continue Albuterol Sulfate [Albuterol Sulfate Hfa] 2 puff INHALATION RT-QID PRN PRN Reason: Shortness Of Breath Discharge Medication List Albuterol Sulfate [Albuterol Sulfate Hfa] 2 puff INHALATION RT-QID PRN 07/04/22 [History] ARIPiprazole IM [Abilify Maintena] 400 mg IM QMONTHLY #1 each 07/09/22 [Rx] ARIPiprazole [Abilify] 20 mg PO DAILY 15 Days tab 07/09/22 [Rx] lamoTRIgine [LaMICtal] 50 mg PO HS 30 Days tab 07/09/22 [Rx] rOPINIRole HCL [Requip] 0.5 mg PO HS 30 Days tab 07/09/22 [Rx] traZODone HCL [Desyrel] 200 mg PO HS 30 Days tab 07/09/22 [Rx] Follow up Appointment(s)/Referral(s): [facility] [Outside] - 07/13/22 12:30 pm (with Cyn) Jarrod Elizabeth III, MD [Primary Care Provider] - 1-2 days Patient Instructions/Handouts: Psychotic Disorder (DC) Activity/Diet/Wound Care/Special Instructions: Avoid the use of street drugs and alcohol. Take all prescriptions as prescribed. When you are in need of refills on your medications, please contact your medical provider and/or outpatient psychiatrist to have this done. Please go to scheduled outpatient appointment for aftercare treatment. If symptoms return or become worse, call the crisis line at and/or go to the nearest emergency room for evaluation Discharge Disposition: HOME SELF-CARE
== END 2022-07-09 12:22 | disposition home or self-care (01) | DRG 885 ==
LOC: EC 17:18 → 3MHU 21:19
PROVIDERS: ADMIT Psychiatry & Neurology Psychiatry; ATTEND Psychiatry & Neurology Psychiatry
DX: F25.0 Schizoaffective disorder, bipolar type (principal); G25.81 Restless legs syndrome; J45.998 Other asthma; F40.10 Social phobia, unspecified; G47.00 Insomnia, unspecified; Z20.822 Contact with and (suspected) exposure to COVID-19; Z91.14 Patient's other noncompliance with medication regimen; Z91.51 Personal history of suicidal behavior; Z79.899 Other long term (current) drug therapy; Z88.5 Allergy status to narcotic agent; Z88.8 Allergy status to other drugs, medicaments and biological substances
CPT/HCPCS: 80053; 80061; 82075; 83036; 84443; 85025; 87635; 93005; 99285

== ENCOUNTER 2023-08-12 10:33 | Inpatient (IN) | payer BC, MEDICAID, OTHER ==
[2023-08-12] MEDS ORDERED: IBUPROFEN 600 MG TAB PO STA (14:14)
[2023-08-12] MEDS ORDERED: ACETAMINOPHEN TAB 325 MG TAB PO STA (14:14)
--- NOTE | 2023-08-12 14:17 | ED ---
Psych HPI - General Source: patient, police, RN notes reviewed Mode of arrival: ambulatory Limitations: no limitations <Jacob Victoria - Last Filed: 08/12/23 14:14> <Jose Antonio Andrews - Last Filed: 08/13/23 02:34> - General Chief Complaint: Psychiatric Symptoms Stated Complaint: Petitioned Time Seen by Provider: 08/12/23 10:57 - History of Present Illness Initial Comments: 23-year-old male presents emergency department with family for psychiatric evaluation. Patient is petitioned by family. Patient is very paranoid, history of schizoaffective. Patient has not received an injection in several months. Family states that he is not stable at home. Patient denies being suicidal homicidal. (Jacob Victoria) - Related Data Home Medications Medication Instructions Recorded Confirmed No Known Home Medications 08/12/23 08/13/23 Allergies Allergy/AdvReac Type Severity Reaction Status Date / Time hydromorphone HCl Allergy Intermediate Rash/Hives/ Verified 08/13/23 01:44 [From Dilaudid] Itching metoclopramide HCl AdvReac Severe Anxiety Verified 08/13/23 01:44 [From Reglan] Review of Systems ROS Other: All systems not noted in ROS Statement are negative. <Jacob Victoria - Last Filed: 08/12/23 14:14> ROS Other: All systems not noted in ROS Statement are negative. <Jose Antonio Andrews - Last Filed: 08/13/23 02:34> ROS Statement: Those systems with pertinent positive or pertinent negative responses have been documented in the HPI. Past Medical History Past Medical History: Asthma Additional Past Medical History / Comment(s): RUPTURED APPENDEX 04/2015. cat allergies. History of Any Multi-Drug Resistant Organisms: None Reported Past Surgical History: Appendectomy, Tonsillectomy Past Psychological History: Anxiety, Depression, Schizophrenia Smoking Status: Never smoker Past Alcohol Use History: Occasional Past Drug Use History: None Reported - Past Family History Mother Family Medical History: No Reported History <Jacob Victoria - Last Filed: 08/12/23 14:14> General Exam Limitations: no limitations General appearance: alert, in no apparent distress, anxious Head exam: Present: atraumatic, normocephalic, normal inspection Eye exam: Present: normal appearance, PERRL, EOMI. Absent: scleral icterus, conjunctival injection, periorbital swelling ENT exam: Present: normal exam, normal oropharynx, mucous membranes moist Neck exam: Present: normal inspection, full ROM. Absent: tenderness, meningismus, lymphadenopathy Respiratory exam: Present: normal lung sounds bilaterally. Absent: respiratory distress, wheezes, rales, rhonchi, stridor Cardiovascular Exam: Present: normal rhythm, tachycardia, normal heart sounds. Absent: systolic murmur, diastolic murmur, rubs, gallop, clicks GI/Abdominal exam: Present: soft, normal bowel sounds. Absent: distended, tenderness, guarding, rebound, rigid Neurological exam: Present: alert, oriented X3, reflexes normal. Absent: motor sensory deficit Psychiatric exam: Present: anxious Skin exam: Present: warm, dry, intact, normal color. Absent: rash <Jacob Victoria - Last Filed: 08/12/23 14:14> Course Vital Signs 08/12/23 08/12/23 08/12/23 10:46 15:37 17:55 Temperature 99.9 F H 98.2 F 97.6 F Pulse Rate 125 H 106 H Respiratory 20 20 Rate Blood Pressure 149/81 140/89 O2 Sat by Pulse 99 99 Oximetry Medical Decision Making <Jacob Victoria - Last Filed: 08/12/23 14:14> <Jose Antonio Andrews - Last Filed: 08/13/23 02:34> - Medical Decision Making Was pt. sent in by a medical professional or institution (Dr. PA, POLLUTION CONTROL TECHNICIAN, urgent care, hospital, or longterm...) When possible be specific @ -No Did you speak to anyone other than the patient for history (EMS, parent, family, police, friend...)? What history was obtained from this source @ -Mother and father providing history] Did you review nursing and triage notes (agree or disagree)? Why? @ -I reviewed and agree with nursing and triage notes Were old charts reviewed (outside hosp., previous admission, EMS record, old EKG, old radiological studies, urgent care reports/EKG's, longterm records)? Report findings @ -No old charts were reviewed Differential Diagnosis (chest pain, altered mental status, abdominal pain women, abdominal pain men, vaginal bleeding, weakness, fever, dyspnea, syncope, headache, dizziness, GI bleed, back pain, seizure, CVA, palpatations, mental health, musculoskeletal)? @ -Differential Mental Health Depression, anxiety, bipolar, psychosis, schizophrenia, borderline personality, situational depression, adjustment disorder, behavioral disorder, brain tumor, malingering, substance abuse, encephalopathy, medication reaction, dementia, hypothyroidism, degenerative neurologic disorder, lupus.... This is not meant to be all-inclusive list EKG interpreted by me (3pts min.). @ -None X-rays interpreted by me (1pt min.). @ -None done CT interpreted by me (1pt min.). @ -None done U/S interpreted by me (1pt. min.). @ -None done What testing was considered but not performed or refused? (CT, X-rays, U/S, labs)? Why? @ -None What meds were considered but not given or refused? Why? @ -None Did you discuss the management of the patient with other professionals (professionals i.e. , PA, POLLUTION CONTROL TECHNICIAN, lab, RT, psych nurse, social service director, career services representative, teacher, security vehicle patrol officer, immigration case worker)? Give summary @ -[EPS evaluated the patient petitioned the patient in which patient will be admitted for psychiatric treatment. Was smoking cessation discussed for >3mins.? @ -No Was critical care preformed (if so, how long)? @ -No Were there social determinants of health that impacted care today? How? (Homelessness, low income, unemployed, alcoholism, drug addiction, transportation, low edu. Level, literacy, decrease access to med. care, [facility], rehab)? @ -No Was there de-escalation of care discussed even if they declined (Discuss DNR or withdrawal of care, Hospice)? DNR status @ -No What co-morbidities impacted this encounter? (DM, HTN, Smoking, COPD, CAD, Cancer, CVA, ARF, Chemo, Hep., AIDS, mental health diagnosis, sleep apnea, morbid obesity)? @ -None Was patient admitted / discharged? Hospital course, mention meds given and route, prescriptions, significant lab abnormalities, going to OR and other pertinent info. @ -[Admitted to psychiatric services for further treatment management Undiagnosed new problem with uncertain prognosis? @ -No Drug Therapy requiring intensive monitoring for toxicity (Heparin, Nitro, Insulin, Cardizem)? @ -No Were any procedures done? @ -No Diagnosis/symptom? @ -Schizoaffective] Acute, or Chronic, or Acute on Chronic? @ -[Acute Uncomplicated (without systemic symptoms) or Complicated (systemic symptoms)? @ -Complicated t Side effects of treatment? @ -[No Exacerbation, Progression, or Severe Exacerbation? @ -No Poses a threat to life or bodily function? How? (Chest pain, [place], [place], pneumonia, PE, COPD, DKA, ARF, appy, cholecystitis, CVA, Diverticulitis, Homicidal, Suicidal, threat to staff... and all critical care pts) @ -No (Jacob Victoria) I did see and evaluate the patient and completed the clinical certification (Jose Antonio Andrews) - Lab Data Lab Results 08/12/23 Range/Units 11:34 Influenza Type A (PCR) Not Detected (Not Detectd) Influenza Type B (PCR) Not Detected (Not Detectd) RSV (PCR) Not Detected (Not Detectd) SARS-CoV-2 (PCR) Not Detected (Not Detectd) Disposition Time of Disposition: 14:17 <Jacob Victoria - Last Filed: 08/12/23 14:14> <Jose Antonio Andrews - Last Filed: 08/13/23 02:34> Clinical Impression: Psychosis, Schizoaffective disorder, bipolar type Disposition: TRANSFER TO PSYCH HOSP/UNIT
[2023-08-12] MEDS ORDERED: IBUPROFEN 600 MG TAB PO PRN (18:53)
[2023-08-12] MEDS ORDERED: haloperidoL 5 MG TAB PO PRN (18:53)
[2023-08-12] MEDS ORDERED: MAG HYDROX/AL HYDROX/SIMETH 30 ML CUP PO PRN (18:53)
[2023-08-12] MEDS ORDERED: ACETAMINOPHEN TAB 325 MG TAB PO PRN (18:53)
[2023-08-12] MEDS ORDERED: MAGNESIUM HYDROXIDE 2,400 MG/30 ML CUP PO PRN (18:53)
[2023-08-12] MEDS ORDERED: LORazepam 2 MG/ML INJ IM PRN (18:53)
[2023-08-12] MEDS ORDERED: LORazepam 1 MG TAB PO PRN (18:53)
[2023-08-12] MEDS ORDERED: HALOPERIDOL LACTATE 5 MG/ML 1 ML VIAL IM PRN (18:53)
[2023-08-12] MEDS ORDERED: NICOTINE 14MG/24HR PATCH TRANSDERM SCH (19:00)
--- NOTE | 2023-08-13 05:58 | P.MDCNMH ---
History of Present Illness H&P Date: 08/13/23 Chief Complaint: Medical eval 23-year-old male brought in by family for psych evaluation patient is noncompliant with his medications experiencing some paranoid ideation. Patient himself denies any fevers chills nausea vomiting coughing denies any chest pain trouble breathing abdominal pain changes in bowel or urinary habits Patient denies tobacco smoking illicit drugs or heavy alcohol review of systems Pertinent positives as noted in HPI. All other systems were reviewed and are negative on exam Constitutional: No acute distress, Eyes: Anicteric sclerae, moist conjunctiva, Pupils equal round reactive to light ENMT: NC/AT Oropharynx clear, no erythema, or exudates Neck: Supple, no masses, or JVD No carotid bruits No thyromegaly Lungs: Clear to auscultation Clear to percussion Normal respiratory effort, no accessory muscle use Cardiovascular: Heart regular in rate and rhythm, No murmurs, gallops, or rubs No peripheral edema Abdominal: Soft Nontender, no guarding, rebound or rigidity Abdomen moving with respiration Normoactive bowel sounds Extremities: No digital cyanosis No clubbing Pedal pulses intact and symmetrical Radial pulses intact and symmetrical No calf tenderness Psychiatric: Alert and oriented to person, place and time Neuro Muscles Strength 5/5 in all 4 extremities Sensation to light touch grossly present throughout Cranial nerves II-XII grossly intact Past Medical History Past Medical History: Asthma Additional Past Medical History / Comment(s): RUPTURED APPENDEX 04/2015. cat allergies. History of Any Multi-Drug Resistant Organisms: None Reported Past Surgical History: Appendectomy, Tonsillectomy Past Psychological History: Anxiety, Depression, Schizophrenia Additional Psychological History / Comment(s): seeing a counselor for anxiety and adjustment Smoking Status: Never smoker Past Alcohol Use History: Occasional Past Drug Use History: None Reported - Past Family History Mother Family Medical History: No Reported History Medications and Allergies Home Medications Medication Instructions Recorded Confirmed Type No Known Home Medications 08/12/23 08/13/23 History Allergies Allergy/AdvReac Type Severity Reaction Status Date / Time hydromorphone HCl Allergy Intermediate Rash/Hives/ Verified 08/13/23 01:44 [From Dilaudid] Itching metoclopramide HCl AdvReac Severe Anxiety Verified 08/13/23 01:44 [From Reglan] Physical Exam Vitals: Vital Signs Temp Pulse Pulse Resp BP BP Pulse Ox 08/13/23 04:45 97.2 F L 103 H 15 117/61 08/12/23 19:35 98.4 F 89 18 135/77 95 08/12/23 17:55 97.6 F 106 H 20 140/89 99 08/12/23 15:37 98.2 F 08/12/23 10:46 99.9 F H 125 H 20 149/81 99 Intake and Output 08/12/23 08/12/23 08/13/23 14:59 22:59 06:59 Other: Weight 81.647 kg 81.647 kg Cranial Nerve Examination - Cranial Nerves Cranial Nerve II- Optic: Intact Cranial Nerve III- Oculomotor: Intact Cranial Nerve IV- Trochlear: Intact Cranial Nerve V- Trigeminal: Intact Cranial Nerve - Abducens: Intact Cranial Nerve VII- Facial: Intact Cranial Nerve VIII- Auditory: Intact Cranial Nerve IX- Glossopharyngeal: Intact Cranial Nerve X- Vagus: Intact Cranial Nerve XI- Accessory: Intact Cranial Nerve XII- Hypoglossal: Intact Assessment and Plan Assessment: Paranoid ideation Management per psych Stable from medical standpoint Follow-up labs Acute viral respiratory panel negative for COVID influenza and RSV Thank you for this consultation
[2023-08-13] MEDS: ARIPiprazole 10 MG TAB PO SCH (08:32)
[2023-08-13 09:04] LABS: Amphetamine Screen,Urine Not Detected (NotDetected); Barbiturate Screen,Urine Not Detected (NotDetected); Benzodiazepines Screen,Urine Not Detected (NotDetected); Cocaine Screen,Urine Not Detected (NotDetected); Methadone Screen, Urine Not Detected (NotDetected); Opiate Screen,Urine Not Detected (NotDetected); Oxycodone Screen, Urine Not Detected (NotDetected); Phencyclidine Screen,Urine Not Detected (NotDetected); Tricyclic Antidepressant,Urine Not Detected (NotDetected); Urn Cannabinoid Scrn Not Detected (NotDetected)
--- NOTE | 2023-08-13 10:48 | P.HP ---
Psychiatric H&P - . History & Physical: 08/13/23 10:43 IDENTIFYING DATA: Patient is a 23-year-old male with a history of schizoaffective disorder: Bipolar type who works full-time and lives with his family HPI: Patient presented to the hospital on a petition for paranoia. Patient states that "I acted in ways that wasn't stable" states that amena is important to him and he may have come out too strong. He does endorse paranoia. He also reports some thought broadcasting yesterday. Has been noncompliant with his medications. Patient denies any suicidal or homicidal ideations intent or plan. At this time patient denies any auditory or visual hallucinations. Patient denies any flight of ideas racing thoughts and increased in goal directed behavior. Denies substance use recently PAST PSYCHIATRIC HISTORY: History of schizoaffective disorder: Bipolar type. Admitted in 2021 for psychosis and stephy and noncompliance. Was on Abilify long-acting injection in the past. Has also been on trazodone and Lamictal in the past.. He is noncompliant with medications [Patient denies any previous psychiatric hospitalizations.] [Patient denies any psychiatric outpatient follow-up.] Has had multiple suicide attempts in the past by hanging himself. Last suicide attempt was at age 15. PMH:asthma ALLERGIES: as per EMR CHEMICAL DEPENDENCY HISTORY: as per HPI FAMILY PSYCHIATRIC/SUBSTANCE USE HISTORY: Mother has depression, no substance use, mother and sister have attempted suicide in the past SOCIAL HISTORY: Family, works full-time, no legal issues Allergies Allergy/AdvReac Type Severity Reaction Status Date / Time hydromorphone HCl Allergy Intermediate Rash/Hives/ Verified 08/13/23 01:44 [From Dilaudid] Itching metoclopramide HCl AdvReac Severe Anxiety Verified 08/13/23 01:44 [From Reglan] Vital Signs Temp 97.2 F L 08/13/23 04:45 Pulse 103 H 08/13/23 04:45 Resp 15 08/13/23 04:45 BP 117/61 08/13/23 04:45 Pulse Ox 95 08/12/23 19:35 FiO2 Intake & Output 08/12/23 08/13/23 08/13/23 18:59 06:59 18:59 Weight 81.647 kg 81.647 kg Laboratory Last Values Urine Opiates Screen Not Detected (NotDetected) 08/13/23 08:35 Ur Oxycodone Screen Not Detected (NotDetected) 08/13/23 08:35 Urine Methadone Screen Not Detected (NotDetected) 08/13/23 08:35 Ur Barbiturates Screen Not Detected (NotDetected) 08/13/23 08:35 U Tricyclic Antidepress Not Detected (NotDetected) 08/13/23 08:35 Ur Phencyclidine Scrn Not Detected (NotDetected) 08/13/23 08:35 Ur Amphetamines Screen Not Detected (NotDetected) 08/13/23 08:35 U Methamphetamines Scrn Not Detected (NotDetected) 08/13/23 08:35 U Benzodiazepines Scrn Not Detected (NotDetected) 08/13/23 08:35 Urine Cocaine Screen Not Detected (NotDetected) 08/13/23 08:35 U Marijuana (THC) Screen Not Detected (NotDetected) 08/13/23 08:35 Influenza Type A (PCR) Not Detected (Not Detectd) 08/12/23 11:34 Influenza Type B (PCR) Not Detected (Not Detectd) 08/12/23 11:34 RSV (PCR) Not Detected (Not Detectd) 08/12/23 11:34 SARS-CoV-2 (PCR) Not Detected (Not Detectd) 08/12/23 11:34 MENTAL STATUS EXAM: General Appearance: Patient appears to be a 23-year-old male stated age is alert, [directable, and attempts to cooperate]. Behavior: Patient is seated without any agitated behavior. [] Speech: Patient's speech is [fluent and nonpressured.] Frequent pauses. Mood/Affect: Patient reports their mood is conflicted", affect is congruent and constricted. Suicidality/Homicidality: Patient denies having any homicidal ideation intent or plan. [Denies any suicidal ideations intent or plan] Perceptions: Patient denies any visual hallucinations [and denies any auditory hallucinations] Though content/process: Paranoid delusions elicited. Thought blocking present. Linear thought process Memory and concentration: AOX3, grossly intact for the purposes of this session. Can spell "WORLD" backwards Judgment and insight: [poor] STRENGTHS/WEAKNESSES: strength is that patient has strong family support. Weakness is that patient see if noncompliance INTELLECT: [average] IMPRESSIONS: Schizoaffective disorder: Bipolar type PLAN: -[A second certification was completed. Will defer to primary team whether patient signs in voluntary or court order should be obtained -Medications : Will start patient on Abilify 10 mg daily with plan for long- acting injection -Ativan [and Haldol] PRN for agitation/aggression -Patient was informed of the risks, benefits and side effects of the medication and patient verbally consented to taking the medications. -Internal Medicine consult to perform medical evaluation and physical. -SW on board for discharge planning. Encourage patient to participate in groups to work on coping skills. [Will await deferral and court date.] []
[2023-08-13 10:58] LABS: Basophils # (A) 0.1 k/uL (0-0.2); Basophils % (A) 1 %; Eosinophils # (A) 0.6 k/uL (0-0.7); Eosinophils % (A) 9 %; HCT 48.4 % (39.0-53.0); HGB 16.4 gm/dL (13.0-17.5); Lymphocytes # (A) 1.9 k/uL (1.0-4.8); Lymphocytes % (A) 28 %; MCH 29.5 pg (25.0-35.0); MCHC 33.9 g/dL (31.0-37.0); MCV 87.2 fL (80.0-100.0); Mean Platelet Volume 7.9; Monocytes # (A) 0.5 k/uL (0-1.0); Monocytes % (A) 7 %; Neutrophils # (A) 3.6 k/uL (1.3-7.7); Neutrophils % (A) 53 %; Platelet Count 192 k/uL (150-450); RBC 5.55 m/uL (4.30-5.90); RDW 13.2 % (11.5-15.5); WBC 6.8 k/uL (3.8-10.6)
[2023-08-13 12:07] LABS: ALT 31 U/L (4-49); AST 49 U/L (17-59); African American GFR (CKD) >90 (>60 ml/min/1.73 sqM); Albumin 4.6 g/dL (3.5-5.0); Alkaline Phosphatase 53 U/L (38-126); Anion Gap 6 mmol/L; Blood Urea Nitrogen 17 mg/dL (9-20); Calcium 9.5 mg/dL (8.4-10.2); Carbon Dioxide 31 mmol/L (22-30); Chloride 106 mmol/L (98-107); Glucose 87 mg/dL (74-99); Non-African American GFR(CKD) >90 (>60 ml/min/1.73 sqM); Potassium 4.7 mmol/L (3.5-5.1); Sodium 143 mmol/L (137-145); Total Bilirubin 0.6 mg/dL (0.2-1.3)
[2023-08-13 14:28] LABS: Appearance,Urine Clear (Clear); Bilirubin,Urine Negative (Negative); Blood,Urine Negative (Negative); Color,Urine Yellow; Glucose,Urine (UA) Negative (Negative); Ketones,Urine Negative (Negative); Leukocyte Esterase,Urine Negative (Negative); Nitrite,Urine Negative (Negative); PH, Urine 5.5 (5.0-8.0); Protein,Urine Trace (Negative); Specific Gravity,Urine 1.035 (1.001-1.035); Urobilinogen,Urine <2.0 mg/dL (<2.0)
[2023-08-13 23:03] LABS: Chol/HDL Ratio 2.33 Ratio; LDL Cholesterol,Calculated 46.1 mg/dL (0.0-131.0); VLDL Calculation 17.76 mg/dL (5.00-40.00)
[2023-08-14] MEDS: ARIPiprazole 10 MG TAB PO SCH (08:16)
--- NOTE | 2023-08-14 09:27 | P.PN ---
Progress Note - Text Interval history: Patient was seen [wandering the hallways] and was directable and agreeable to speak with flex o writer operator. Denies paranoia. At this time patient denies any suicidal or homicidal ideations intent or plan. Denies any Auditory or visual hallucinations. Patient denies any side effects from the medications and has been compliant with meds. Mental status exam: General Appearance: [Patient appears to be older than stated age is alert, directable, and cooperative.] Behavior: [No agitated behavior. Patient is calm and directable] Speech: Patient's speech is fluent and nonpressured. Mood/Affect: Mood is improving mildly, affect is congruent and constricted. Suicidality/Homicidality: Patient denies having any suicidal or homicidal ideation intent or plan. Perceptions: Patient denies any auditory or visual hallucinations. Though content/process: [There is no evidence of any delusional thought content and thought process is linear and goal-directed.] Memory and concentration: AOX3, grossly intact for the purposes of this session Judgment and insight: improving mildly Assessment/Plan: Continue with current diagnosis. Patient continues to meet criteria for inpatient psychiatric admission for symptom stabilization and safety.[Patient will be maintained on current psychotropic medication regimen.] Monitor for medication compliance and for any psychotropic medication side effects. Will continue to monitor ongoing response to treatment. Encouraged participation in milieu.
[2023-08-15] MEDS: ARIPiprazole 10 MG TAB PO SCH (08:08)
--- NOTE | 2023-08-15 13:40 | P.PN ---
Progress Note - Text Progress Note Date: 08/15/23 Interval history: Patient was seen today and agreeable to speak to advertising copy writer for psychiatric follow- up. he claims that he is doing a bit better today. spoke about a "brothered sheth" that came to his mind. he was fairly preoccupied with this and beleives that his grandfather was part of them. states that he is sleeping a bit better, was agreeable to have his abilify adjusted. denies any Si or HI at this time. denies any AH or VH. claims that his appetite is improving. not reporting any side effects. rambles at times and is illogical. MENTAL STATUS EXAM: General Appearance: Patient appears to be a 23-year-old male stated age is alert, directable, and attempts to cooperate. Behavior: Patient is seated without any agitated behavior. more cooperative today, poor eye contact Speech: Patient's speech is fluent and nonpressured. Frequent pauses. improving Mood/Affect: Patient reports their mood is "a bit better", affect is congruent and constricted. Suicidality/Homicidality: Patient denies having any homicidal ideation intent or plan. Denies any suicidal ideations intent or plan Perceptions: Patient denies any visual hallucinations and denies any auditory hallucinations Though content/process: Paranoid delusions elicited. Thought blocking present. rambles at times. Memory and concentration: AOX3, grossly intact for the purposes of this session Judgment and insight: Poor, improving mildly IMPRESSIONS: Schizoaffective disorder: Bipolar type PLAN: -A second certification was completed. At this time patient is admitted involuntarily to mental health unit. -Medications : increase and change to Abilify 15 mg qhs with plan for long- acting injection -Ativan and Haldol PRN for agitation/aggression -SW on board for discharge planning. Encourage patient to participate in groups to work on coping skills. Will await deferral and court date.
[2023-08-15] MEDS: ARIPiprazole 15 MG TAB PO SCH (20:33)
--- NOTE | 2023-08-16 11:46 | P.PN ---
Progress Note - Text Progress Note Date: 08/16/23 Interval history: Patient was seen today and agreeable to speak to keno writer for psychiatric follow- up. Taking part in group today. He claims that he is doing a bit better today. He continues to be fairly concrete, poverty of content. States that he talked with his mom over the phone and things have been going well. states that he is sleeping a bit better, claims his appetite is improving. We spoke about transitioning onto a long-acting injection, patient was agreeable to this. He also will be meeting with his city attorney today for a deferral. Denies any Si or HI at this time. denies any AH or VH. not reporting any side effects. MENTAL STATUS EXAM: General Appearance: Patient appears to be thin, a 23-year-old male stated age is alert, directable, and attempts to cooperate. Behavior: Patient is seated without any agitated behavior. more cooperative today, improving eye contact Speech: Patient's speech is fluent and nonpressured. Frequent pauses. improving Mood/Affect: Patient reports their mood is "better", affect is congruent and constricted, improving mildly. Suicidality/Homicidality: Patient denies having any homicidal ideation intent or plan. Denies any suicidal ideations intent or plan Perceptions: Patient denies any visual hallucinations and denies any auditory hallucinations Though content/process: Not endorsing delusions today, not religiously preoccupied. Fairly concrete, poverty of content Memory and concentration: AOX3, grossly intact for the purposes of this session Judgment and insight: Poor, improving mildly IMPRESSIONS: Schizoaffective disorder, Bipolar type PLAN: -A second certification was completed. At this time patient is admitted involuntarily to mental health unit. -Medications : Continue with Abilify 15 mg qhs for mood stabilization, patient is agreeable to receive Abilify Maintenna scheduled for tomorrow. -Ativan and Haldol PRN for agitation/aggression -SW on board for discharge planning. Encourage patient to participate in groups to work on coping skills. Patient will have deferral with city attorney on 08/16, likely discharge versus Tuesday back home if patient is improving psychiatrically.
[2023-08-16] MEDS: ARIPiprazole 15 MG TAB PO SCH (21:07)
--- NOTE | 2023-08-17 11:52 | P.PN ---
Progress Note - Text Progress Note Date: 08/17/23 Interval history: Patient was seen today and agreeable to speak to copy writer for psychiatric follow- up. Taking part in group today. He claims that he is feeling "good" today. Pt states he felt stressed last night talking to family. He continues to be fairly concrete, poverty of content, improving mildly. States that he talked with his mom over the phone leaves that he is able to return there after being discharged. states that he is sleeping a bit better, but having difficulty initiating sleep. claims his appetite is improving. Pt reports having anxiety last night. Pt reports having some racing thoughts. Pt did not differ with business attorney. Denies any Si or HI at this time. denies any AH or VH. not reporting any side effects. MENTAL STATUS EXAM: General Appearance: Patient appears to be thin, a 23-year-old male stated age is alert, directable, and attempts to cooperate. Continues to have poor eye contact. Behavior: Patient is seated without any agitated behavior. cooperative today Speech: Patient's speech is fluent and nonpressured. Frequent pauses. improving Mood/Affect: Patient reports their mood is "better", affect is congruent and constricted, improving mildly. Suicidality/Homicidality: Patient denies having any homicidal ideation intent or plan. Denies any suicidal ideations intent or plan Perceptions: Patient denies any visual hallucinations and denies any auditory hallucinations Though content/process: Not endorsing delusions today, not religiously preoccupied. Fairly concrete, poverty of content, improving mildly Memory and concentration: AOX3, grossly intact for the purposes of this session Judgment and insight: Poor, improving mildly IMPRESSIONS: Schizoaffective disorder, Bipolar type PLAN: -A second certification was completed. At this time patient is admitted involuntarily to mental health unit. -Medications : Increasing with Abilify 20 mg qhs for mood stabilization. Starting trazodone 50mg qhs sleep/mood -Ativan and Haldol PRN for agitation/aggression -SW on board for discharge planning. Encourage patient to participate in groups to work on coping skills. Patient did not defer, full court hearing is on 08/24.
[2023-08-17] MEDS ORDERED: traZODone HCL 50 MG TAB PO SCH (21:00)
[2023-08-17] MEDS: LORazepam 1 MG TAB PO PRN (22:56)
[2023-08-18] MEDS ORDERED: ARIPiprazole 15 MG TAB PO ONE (13:46)
--- NOTE | 2023-08-18 13:51 | P.PN ---
Progress Note - Text Progress Note Date: 08/18/23 Interval history: Patient was seen today and agreeable to speak to fiction and nonfiction prose writer for psychiatric follow- up. Patient has been taking part in many groups, has been interacting more with other patients. He continues to have a constricted affect, continues to have poor eye contact. He continues to be fairly concrete in his responses. He states that last night he had a difficult night and states that he was not able to speak very long to his family. He states that he is having racing thoughts and was feeling "off" last night and was not able to sleep. We spoke about changing the him Abilify to daytime dosing which he is okay to try and also increasing trazodone. States that he feeling a bit anxious today, denies any depression. claims his appetite is improving. Pt reports having some racing thoughts. Pt did not differ with trade mark attorney, currently awaiting court hearing. Denies any Si or HI at this time. denies any AH or VH. not reporting any side effects. Patient states that he is agreeable to be transitioned back onto the long-acting injection Abilify Maintenna. MENTAL STATUS EXAM: General Appearance: Patient appears to be thin, a 23-year-old male stated age is alert, directable, and attempts to cooperate. Continues to have poor eye contact. Behavior: Patient is seated without any agitated behavior. constricted, poor eye contact Speech: Patient's speech is fluent and nonpressured. Frequent pauses. Mood/Affect: Patient reports their mood is "anxious", affect is congruent and constricted, improving mildly. Suicidality/Homicidality: Patient denies having any homicidal ideation intent or plan. Denies any suicidal ideations intent or plan Perceptions: Patient denies any visual hallucinations and denies any auditory hallucinations Though content/process: Not endorsing delusions today, not religiously preoccupied. Fairly concrete, poverty of content, improving mildly Memory and concentration: AOX3, grossly intact for the purposes of this session Judgment and insight: Poor, improving mildly IMPRESSIONS: Schizoaffective disorder, Bipolar type PLAN: -A second certification was completed. At this time patient is admitted involuntarily to mental health unit. -Medications : Decrease Abilify 15 mg qhs for mood stabilization. Will attempt to transition patient back onto Abilify Maintenna once patient is stabilized prior to discharge. Increase trazodone 100 mg qhs sleep/mood -Ativan and Haldol PRN for agitation/aggression -SW on board for discharge planning. Encourage patient to participate in groups to work on coping skills. Patient did not defer, full court hearing is on 08/24.
[2023-08-18] MEDS: traZODone HCL 100 MG TAB PO SCH (20:01)
[2023-08-19] MEDS: ARIPiprazole 15 MG TAB PO SCH (09:23)
--- NOTE | 2023-08-19 12:03 | P.PN ---
Progress Note - Text Progress Note Date: 08/19/23 Interval history: Patient was seen today in group and was agreeable to speak to screen writer. Patient has been taking part in many groups, has been interacting more with other patients. He continues to have a constricted affect, continues to have poor eye contact. He continues to be fairly concrete in his responses. States that he feeling "better", denies any depression. claims his appetite is good. Pt initally did not sign deferral, but wants to now, currently waiting on claim attorney. Denies any SI or HI at this time. denies any AH or VH. not reporting any side effects. Patient states that he is agreeable to be transitioned back onto the long-acting injection Abilify Maintenna. MENTAL STATUS EXAM: General Appearance: Patient appears to be thin, a 23-year-old male stated age is alert, directable, and attempts to cooperate. Continues to have poor eye contact. Behavior: Patient is seated without any agitated behavior. constricted, poor eye contact, mildly improving Speech: Patient's speech is fluent and nonpressured. Frequent pauses, mildly improving. Mood/Affect: Patient reports their mood is "anxious", affect is congruent and constricted, improving mildly. Suicidality/Homicidality: Patient denies having any homicidal ideation intent or plan. Denies any suicidal ideations intent or plan Perceptions: Patient denies any visual hallucinations and denies any auditory hallucinations Though content/process: Not endorsing delusions today, not religiously preoccupied. Fairly concrete, poverty of content, improving mildly Memory and concentration: AOX3, grossly intact for the purposes of this session Judgment and insight: Poor, improving mildly IMPRESSIONS: Schizoaffective disorder, Bipolar type PLAN: -A second certification was completed. At this time patient is admitted involuntarily to mental health unit. -Medications : -Abilify 15 mg qhs for mood stabilization. Will attempt to transition patient back onto Abilify Maintenna this tuesday. -Continue trazodone 100 mg qhs sleep/mood -Ativan and Haldol PRN for agitation/aggression -SW on board for discharge planning. Encourage patient to participate in groups to work on coping skills. Patient awaiting claim attorney to defer, full court hearing is on 08/24. if patient defers then likely discharge tuesday back home.
[2023-08-19] MEDS: traZODone HCL 100 MG TAB PO SCH (19:59)
[2023-08-19] MEDS: LORazepam 1 MG TAB PO PRN (21:48)
[2023-08-20] MEDS: ARIPiprazole 15 MG TAB PO SCH (08:29)
--- NOTE | 2023-08-20 11:28 | P.PN ---
Progress Note - Text Progress Note Date: 08/20/23 Interval history: Patient was seen today wandering the hallways and agreeable to speak to automatic typewriter inspector. Patient claims that he just visited with his mother on the unit. States that she was mainly asking about discharge and how he is doing. He claims that he is doing a bit better today. Claims that he is still willing to take the long- acting injection tomorrow. Claims that his medications have been doing well. States that he woke up in the middle the night and had to take an Ativan to go back to sleep. We spoke about the need to attempt to wean him off the Ativan and have him sleep on trazodone, he agreed to have the trazodone increased today. Patient has been taking part in many groups, has been interacting more with other patients. claims his appetite is good. Deferred with his securities attorney on 08/19. Denies any SI or HI at this time. denies any AH or VH. not reporting any side effects. MENTAL STATUS EXAM: General Appearance: Patient appears to be thin, a 23-year-old male stated age is alert, directable, and attempts to cooperate. Continues to have mildly improving eye contact. Behavior: Patient is seated without any agitated behavior. constricted, mildly improving Speech: Patient's speech is fluent and nonpressured. Frequent pauses, mildly improving. Mood/Affect: Patient reports their mood is "ok", affect is congruent and constricted, improving mildly. Suicidality/Homicidality: Patient denies having any homicidal ideation intent or plan. Denies any suicidal ideations intent or plan Perceptions: Patient denies any visual hallucinations and denies any auditory hallucinations Though content/process: Not endorsing delusions today, not religiously preoccup ied. Fairly concrete, poverty of content, improving mildly Memory and concentration: AOX3, grossly intact for the purposes of this session Judgment and insight: improving mildly IMPRESSIONS: Schizoaffective disorder, Bipolar type PLAN: -A second certification was completed. At this time patient is admitted involuntarily to mental health unit. -Medications : -Abilify 15 mg qhs for mood stabilization. Will transition patient back onto Abilify Maintenna on 08/21 to ensure compliance. -Increase trazodone 200 mg qhs sleep/mood -Ativan and Haldol PRN for agitation/aggression -SW on board for discharge planning. Encourage patient to participate in groups to work on coping skills. Patient deferred with his securities attorney on 08/19. if patient defers then likely discharge tuesday back home once patient is transitioned onto the long-acting injection.
[2023-08-20] MEDS ORDERED: traZODone HCL 50 MG TAB PO SCH (21:00)
[2023-08-20] MEDS: traZODone HCL 100 MG TAB PO SCH (21:05)
[2023-08-21 06:28] VITALS: RESP 18; TEMP 98
[2023-08-21] MEDS: ARIPiprazole 15 MG TAB PO SCH (07:54)
[2023-08-21] MEDS ORDERED: ARIPiprazole IM SYRINGE 400 MG (NO CHARGE) PHARMACY STOCK IM ONE (11:00)
--- NOTE | 2023-08-21 11:51 | P.PN ---
Progress Note - Text Progress Note Date: 08/21/23 Interval history: Patient was seen today wandering the hallways and agreeable to speak to automatic typewriter inspector. Patient states that he did receive the injection today, tolerated it well. States that he is doing better overall with regards to his mood and racing thoughts. She has been interacting more with people on the unit. Claims that he did sleep a bit better last night and wants to continue on the same medications for nighttime. He was fairly excited for going home tomorrow if he is able to be discharged. claims his appetite is good. Denies any SI or HI at this time. denies any AH or VH. not reporting any side effects. MENTAL STATUS EXAM: General Appearance: Patient appears to be thin, a 23-year-old male stated age is alert, directable, and attempts to cooperate. Continues to have mildly improving eye contact. Behavior: Patient is seated without any agitated behavior. constricted, mildly improving Speech: Patient's speech is fluent and nonpressured, mildly improving. Mood/Affect: Patient reports their mood is "ok", affect is congruent and constricted, improving mildly. Suicidality/Homicidality: Patient denies having any homicidal ideation intent or plan. Denies any suicidal ideations intent or plan Perceptions: Patient denies any visual hallucinations and denies any auditory hallucinations Though content/process: Not endorsing delusions today, not religiously preoccupied. Fairly concrete, poverty of content, improving mildly Memory and concentration: AOX3, grossly intact for the purposes of this session Judgment and insight: improving mildly IMPRESSIONS: Schizoaffective disorder, Bipolar type PLAN: -A second certification was completed. At this time patient is admitted involuntarily to mental health unit. -Medications : -Abilify 15 mg qhs for mood stabilization. Patient received Abilify Maintenna 400 mg IM on 08/21 to ensure compliance, next dose will be due on 09/18. -Increase trazodone 200 mg qhs sleep/mood -Ativan and Haldol PRN for agitation/aggression -SW on board for discharge planning. Encourage patient to participate in groups to work on coping skills. Patient deferred with his trust and estates attorney on 08/19. if patient defers then likely discharge tuesday back home
[2023-08-21] MEDS: traZODone HCL 100 MG TAB PO SCH (20:02)
[2023-08-22 06:52] VITALS: BP 100/55; PULSE 95
[2023-08-22] MEDS: ARIPiprazole 15 MG TAB PO SCH (08:15)
--- NOTE | 2023-08-22 09:51 | P.DS ---
Providers Date of admission: 08/12/23 18:22 Expected date of discharge: 08/22/23 Attending physician: Vern Jorge MD Consults: 08/12/23 18:53 Consult Physician Routine Consulting Provider: Kameron Cisse Consult Reason/Comments: medical management/history and physical Do you want consulting provider notified?: Yes Primary care physician: Stated None - Discharge Diagnosis(es) (1) Schizoaffective disorder, bipolar type Current Visit: Yes Status: Acute Priority: High Hospital Course: Admission HPI: Admission note was completed by Dr Gamez "patient is a 23-year-old male with a history of schizoaffective disorder: Bipolar type who works [employer] and lives with his family. Patient presented to the hospital on a petition for paranoia. Patient states that "I acted in ways that wasn't stable" states that amena is important to him and he may have come out too strong. He does endorse paranoia. He also reports some thought broadcasting yesterday. Has been noncompliant with his medications. Patient denies any suicidal or homicidal ideations intent or plan. At this time patient denies any auditory or visual hallucinations. Patient denies any flight of ideas racing thoughts and increased in goal directed behavior. Denies substance use recently." Hospital course: Upon admission to the unit patient was admitted involuntarily on a petition and certificate and a second certificate was completed and faxed to the courts. Patient ended up signing a deferral with the title attorney and agreeing to treatment. Patient got along well with other patients on the unit and followed unit protocol. Patient was compliant with the medications and denied any side effects throughout hospital course. Patient was started on Abilify p.o. and increase to dose of 50 mg daily for mood stabilization/psychosis. Patient was transitioned onto Abilify maintainer 400 mg IM given on 08/21, next dose of 400 mg IM will be given at [facility] on 09/18. Trazodone 200 mg nightly for sleep/mood. Patient spoke of his stressors and engaged in therapy both group and individual. Patient was also seen by medical team for history and physical exam. Throughout the course of the hospitalization patient gradually improved with regards to mood, anxiety, psychosis, delusions, sleep and returned back to their baseline level of functioning. On the day of discharge patient denied any suicidal or homicidal ideations intent or plan denied any auditory or visual hallucinations. Patient endorsed wanting to live for their health and family. The patient denied any access to guns or weapons. Patient denied any paranoia and did not endorse any delusions. Patient does not have a significant history of substance abuse and was counseled on abstaining from all substances including alcohol and marijuana. . Patient was also counseled on the medications and need for regular compliance and was encouraged to follow-up with their outpatient appointment for mental health and also for primary care. Prior to discharge a family meeting will be arranged by rn social services to answer any questions and ensure safety upon discharge incuding making sure that guns/weapons are either removed from the home or locked away. She will be followed up at [facility] regularly. Mental status exam: General Appearance: Patient appears to be thin, unshaven, stated age is alert, pleasant, and cooperative. Patient is in no acute distress and has improved hygiene and grooming Behavior: Patient is calmly seated without any agitated behavior. Speech: Patient's speech is fluent and nonpressured. Mood/Affect: Patient reports their mood is "better good", affect is congruent Suicidality/Homicidality: Patient denies having any suicidal or homicidal ideation intent or plan. Perceptions: Patient denies any auditory or visual hallucinations. Though content/process: There is no evidence of any delusional thought content and thought process is linear and goal-directed. More future oriented Memory and concentration: AOX3, grossly intact for the purposes of this session. Can spell "WORLD" backwards correctly. Judgment and insight: improved with guarded prognosis Impression: Schizoaffective disorder bipolar type Plan: -Continue with discharge today as patient has improved and stabilized psychiatrically and is not currently an imminent threat to themself and/or others. Patient will remain at chronically elevated risk for harm to self and/or others due to their chronic mental illness. -Continue medications: Abilify PO 15 mg mood stabilization/psychosis, continue on for 13 more days then discontinue. Patient was transitioned onto Abilify Maintena 400 mg IM given on 08/21 to ensure compliance, next dose will be due on 09/18. Trazodone 200 mg nightly for sleep/mood, can consider [id number] melatonin if needed at home. -Patient was counseled on the need for medication compliance and appropriate follow-up at mental health and also primary care for medical issues. Patient verbalized understanding and agreed. -Social work to help coordinate patients discharge today arrange for and conduct family meeting to ensure safety upon discharge and answer any questions/concerns. also to ensure safe home environment that guns/weapons are either removed from the home or locked away. Social work also to arrange for patients follow up appointments with [facility] for psychiatric care along with follow up with primary care provider. -Patient counseled on abstaining from recreational drugs and marijuana and alcohol. Was informed/educated on the adverse effects on their physical and mental health. Patient verbally agreed and understood. -Patient was instructed to return to the hospital or seek immediate medical care if their psychiatric or medical symptoms do worsen or reoccur. Allergies Allergy/AdvReac Type Severity Reaction Status Date / Time hydromorphone HCl Allergy Intermediate Rash/Hives/ Verified 08/13/23 01:44 [From Dilaudid] Itching metoclopramide HCl AdvReac Severe Anxiety Verified 08/13/23 01:44 [From Reglan] Laboratory Results WBC 6.8 k/uL (3.8-10.6) 08/13/23 10:14 RBC 5.55 m/uL (4.30-5.90) 08/13/23 10:14 Hgb 16.4 gm/dL (13.0-17.5) 08/13/23 10:14 Hct 48.4 % (39.0-53.0) 08/13/23 10:14 MCV 87.2 fL (80.0-100.0) 08/13/23 10:14 MCH 29.5 pg (25.0-35.0) 08/13/23 10:14 MCHC 33.9 g/dL (31.0-37.0) 08/13/23 10:14 RDW 13.2 % (11.5-15.5) 08/13/23 10:14 Plt Count 192 k/uL (150-450) 08/13/23 10:14 MPV 7.9 08/13/23 10:14 Neutrophils % 53 % 08/13/23 10:14 Lymphocytes % 28 % 08/13/23 10:14 Monocytes % 7 % 08/13/23 10:14 Eosinophils % 9 % 08/13/23 10:14 Basophils % 1 % 08/13/23 10:14 Neutrophils # 3.6 k/uL (1.3-7.7) 08/13/23 10:14 Lymphocytes # 1.9 k/uL (1.0-4.8) 08/13/23 10:14 Monocytes # 0.5 k/uL (0-1.0) 08/13/23 10:14 Eosinophils # 0.6 k/uL (0-0.7) 08/13/23 10:14 Basophils # 0.1 k/uL (0-0.2) 08/13/23 10:14 Sodium 143 mmol/L (137-145) 08/13/23 10:14 Potassium 4.7 mmol/L (3.5-5.1) 08/13/23 10:14 Chloride 106 mmol/L (98-107) 08/13/23 10:14 Carbon Dioxide 31 mmol/L (22-30) H 08/13/23 10:14 Anion Gap 6 mmol/L 08/13/23 10:14 BUN 17 mg/dL (9-20) 08/13/23 10:14 Creatinine 0.90 mg/dL (0.66-1.25) 08/13/23 10:14 Est GFR (CKD-EPI)AfAm >90 (>60 ml/min/1.73 sqM) 08/13/23 10:14 Est GFR (CKD-EPI)NonAf >90 (>60 ml/min/1.73 sqM) 08/13/23 10:14 Glucose 87 mg/dL (74-99) 08/13/23 10:[address] Glu mg/dL 108 mg/dL 08/13/23 10:14 Hemoglobin A1c 5.4 % (<=6.0) 08/13/23 10:14 Calcium 9.5 mg/dL (8.4-10.2) 08/13/23 10:14 Total Bilirubin 0.6 mg/dL (0.2-1.3) 08/13/23 10:14 AST 49 U/L (17-59) 08/13/23 10:14 ALT 31 U/L (4-49) 08/13/23 10:14 Alkaline Phosphatase 53 U/L (38-126) 08/13/23 10:14 Total Protein 7.0 g/dL (6.3-8.2) 08/13/23 10:14 Albumin 4.6 g/dL (3.5-5.0) 08/13/23 10:14 Triglycerides 88.80 mg/dL (0.00-149.00) 08/13/23 10:14 Cholesterol 112.00 mg/dL (0.00-200.00) 08/13/23 10:14 LDL Cholesterol, Calc 46.1 mg/dL (0.0-131.0) 08/13/23 10:14 VLDL Cholesterol, Calc 17.76 mg/dL (5.00-40.00) 08/13/23 10:14 HDL Cholesterol 48.10 mg/dL (40.00-60.00) 08/13/23 10:14 Cholesterol/HDL Ratio 2.33 Ratio 08/13/23 10:14 TSH 0.563 mIU/L (0.465-4.680) 08/13/23 10:14 Urine Color Yellow 08/13/23 08:35 Urine Appearance Clear (Clear) 08/13/23 08:35 Urine pH 5.5 (5.0-8.0) 08/13/23 08:35 Ur Specific [place] 1.035 (1.001-1.035) 08/13/23 08:35 Urine Protein Trace (Negative) H 08/13/23 08:35 Urine Glucose (UA) Negative (Negative) 08/13/23 08:35 Urine Ketones Negative (Negative) 08/13/23 08:35 Urine Blood Negative (Negative) 08/13/23 08:35 Urine Nitrite Negative (Negative) 08/13/23 08:35 Urine Bilirubin Negative (Negative) 08/13/23 08:35 Urine Urobilinogen <2.0 mg/dL (<2.0) 08/13/23 08:35 Ur Leukocyte Esterase Negative (Negative) 08/13/23 08:35 Urine Opiates Screen Not Detected (NotDetected) 08/13/23 08:35 Ur Oxycodone Screen Not Detected (NotDetected) 08/13/23 08:35 Urine Methadone Screen Not Detected (NotDetected) 08/13/23 08:35 Ur Barbiturates Screen Not Detected (NotDetected) 08/13/23 08:35 U Tricyclic Antidepress Not Detected (NotDetected) 08/13/23 08:35 Ur Phencyclidine Scrn Not Detected (NotDetected) 08/13/23 08:35 Ur Amphetamines Screen Not Detected (NotDetected) 08/13/23 08:35 U Methamphetamines Scrn Not Detected (NotDetected) 08/13/23 08:35 U Benzodiazepines Scrn Not Detected (NotDetected) 08/13/23 08:35 Urine Cocaine Screen Not Detected (NotDetected) 08/13/23 08:35 U Marijuana (THC) Screen Not Detected (NotDetected) 08/13/23 08:35 Influenza Type A (PCR) Not Detected (Not Detectd) 08/12/23 11:34 Influenza Type B (PCR) Not Detected (Not Detectd) 08/12/23 11:34 RSV (PCR) Not Detected (Not Detectd) 08/12/23 11:34 SARS-CoV-2 (PCR) Not Detected (Not Detectd) 08/12/23 11:34 Vital Signs Temp 98.0 F 08/21/23 06:00 Pulse 95 08/22/23 06:50 Resp 18 08/21/23 06:00 BP 100/55 08/22/23 06:50 Pulse Ox 100 08/21/23 06:00 FiO2 Intake & Output 08/21/23 08/22/23 08/22/23 18:59 06:59 18:59 Weight 78.7 kg Patient Condition at Discharge: Stable Plan - Discharge Summary Discharge Rx Participant: Yes New Discharge Prescriptions: New ARIPiprazole IM [Abilify Maintena] 400 mg IM QMONTHLY #1 each ARIPiprazole [Abilify] 15 mg PO DAILY 13 Days #13 tab traZODone HCL [Desyrel] 200 mg PO HS 30 Days #60 tab Discharge Medication List ARIPiprazole IM [Abilify Maintena] 400 mg IM QMONTHLY #1 each 08/22/23 [Rx] ARIPiprazole [Abilify] 15 mg PO DAILY 13 Days #13 tab 08/22/23 [Rx] traZODone HCL [Desyrel] 200 mg PO HS 30 Days #60 tab 08/22/23 [Rx] Follow up Appointment(s)/Referral(s): None,Stated [Primary Care Provider] - 1-2 days Activity/Diet/Wound Care/Special Instructions: Avoid the use of street drugs and alcohol. Take all medications as prescribed. When you are in need of refills on your medications, please contact your medical provider and/or outpatient psychiatrist/provider to have this done. Please go to your scheduled outpatient appointment for aftercare treatment. If symptoms return or become worse, call the crisis line at and/or go to the nearest emergency room for evaluation. National Suicide Hotline 538. Discharge Disposition: HOME SELF-CARE
== END 2023-08-22 14:40 | disposition home or self-care (01) | DRG 885 ==
LOC: EC 10:33 → 3MHU 18:22
PROVIDERS: ADMIT Psychiatry & Neurology Psychiatry; ATTEND Psychiatry & Neurology Psychiatry
DX: F25.0 Schizoaffective disorder, bipolar type (principal); Z79.899 Other long term (current) drug therapy; Z81.8 Family history of other mental and behavioral disorders; Z91.148 Patient's other noncompliance with medication regimen for other reason; Z91.199 Patient's noncompliance with other medical treatment and regimen due to unspecified reason; Z91.51 Personal history of suicidal behavior; Z11.52 Encounter for screening for COVID-19
CPT/HCPCS: 80053; 80061; 80306; 81003; 82075; 83036; 84443; 85025; 87636; 99285

== ENCOUNTER 2023-09-15 17:03 | Inpatient (IN) | payer OTHER, MEDICAID ==
--- NOTE | 2023-09-15 18:41 | ED ---
Psych HPI - General Chief Complaint: Psychiatric Symptoms Stated Complaint: MENTAL HEALTH Time Seen by Provider: 09/15/23 18:19 Source: patient, RN notes reviewed, old records reviewed Mode of arrival: ambulatory - History of Present Illness Initial Comments: This is a 23-year-old male to the ER for evaluation today. [facility] for evaluation regards to psychiatric illness. He is schizophrenic with acute psychosis. Denies drugs or alcohol abuse MD Complaint: suicidal ideation, feels depressed, altered mental status -: days(s) Associated Psychiatric Symptoms: depression, suicidal ideation History of same: Yes Quality: constant Improves With: none Context: not taking psychiatric medications, significant life stressor Associated Symptoms: denies other symptoms Treatments Prior to Arrival: placed on mental health hold If Self Harm: admits thoughts of self harm - Related Data Home Medications Medication Instructions Recorded Confirmed ARIPiprazole IM [Abilify Maintena] 400 mg IM Q30D 09/15/23 09/15/23 Previous Rx's Medication Instructions Recorded traZODone HCL [Desyrel] 200 mg PO HS 30 Days #60 tab 08/22/23 Allergies Allergy/AdvReac Type Severity Reaction Status Date / Time hydromorphone HCl Allergy Intermediate Rash/Hives/ Verified 09/15/23 20:26 [From Dilaudid] Itching metoclopramide HCl AdvReac Severe Anxiety Verified 09/15/23 20:26 [From Reglan] Review of Systems ROS Statement: Those systems with pertinent positive or pertinent negative responses have been documented in the HPI. ROS Other: All systems not noted in ROS Statement are negative. Past Medical History Past Medical History: Asthma Additional Past Medical History / Comment(s): RUPTURED APPENDEX 04/2015. cat allergies. History of Any Multi-Drug Resistant Organisms: None Reported Past Surgical History: Appendectomy, Tonsillectomy Past Psychological History: Anxiety, Depression, Schizophrenia Smoking Status: Never smoker Past Alcohol Use History: Occasional Past Drug Use History: None Reported - Past Family History Mother Family Medical History: No Reported History General Exam Limitations: no limitations, altered mental status General appearance: alert, in no apparent distress Head exam: Present: atraumatic, normocephalic, normal inspection Eye exam: Present: normal appearance, PERRL, EOMI. Absent: scleral icterus, conjunctival injection, periorbital swelling ENT exam: Present: normal exam, mucous membranes moist Neck exam: Present: normal inspection. Absent: tenderness, meningismus, lymphadenopathy Respiratory exam: Present: normal lung sounds bilaterally. Absent: respiratory distress, wheezes, rales, rhonchi, stridor Cardiovascular Exam: Present: regular rate, normal rhythm, normal heart sounds. Absent: systolic murmur, diastolic murmur, rubs, gallop, clicks GI/Abdominal exam: Present: soft, normal bowel sounds. Absent: distended, tenderness, guarding, rebound, rigid Extremities exam: Present: normal inspection, full ROM, normal capillary refill. Absent: tenderness, pedal edema, joint swelling, calf tenderness Back exam: Present: normal inspection Neurological exam: Present: alert, oriented X3, CN II-XII intact Psychiatric exam: Present: normal affect, normal mood Skin exam: Present: warm, dry, intact, normal color. Absent: rash Course Vital Signs 09/15/23 17:28 Temperature 97.5 F L Pulse Rate 102 H Respiratory 20 Rate Blood Pressure 139/97 O2 Sat by Pulse 98 Oximetry - Reevaluation(s) Reevaluation #1: 09/15/23 20:19 Medical records reviewed Reevaluation #2: 09/15/23 20:19 Medically cleared for psychiatric evaluation with Medical Decision Making - Medical Decision Making 23 male will be admitted for psychiatric evaluation and treatment - Lab Data Result diagrams: 09/16/23 07:11 09/16/23 07:11 Lab Results 09/15/23 Range/Units 20:40 Influenza Type A (PCR) Not Detected (Not Detectd) Influenza Type B (PCR) Not Detected (Not Detectd) RSV (PCR) Not Detected (Not Detectd) SARS-CoV-2 (PCR) Not Detected (Not Detectd) Disposition Clinical Impression: Schizoaffective disorder, bipolar type, Psychosis Disposition: TRANSFER TO PSYCH HOSP/UNIT Condition: Fair Is patient prescribed a controlled substance at d/c from ED?: No
[2023-09-15] MEDS ORDERED: MAGNESIUM HYDROXIDE 2,400 MG/30 ML CUP PO PRN (23:01)
[2023-09-15] MEDS ORDERED: MAG HYDROX/AL HYDROX/SIMETH 355 ML BOTTLE PO PRN (23:01)
[2023-09-15] MEDS ORDERED: LORazepam 2 MG/ML INJ IM PRN (23:06)
[2023-09-15] MEDS ORDERED: HALOPERIDOL LACTATE 5 MG/ML 1 ML VIAL IM PRN (23:06)
[2023-09-16 00:10] LABS: Appearance,Urine Clear (Clear); Bilirubin,Urine Negative (Negative); Blood,Urine Negative (Negative); Color,Urine Yellow; Glucose,Urine (UA) Negative (Negative); Ketones,Urine 2+ (Negative); Leukocyte Esterase,Urine Negative (Negative); Nitrite,Urine Negative (Negative); Protein,Urine Trace (Negative); Specific Gravity,Urine 1.033 (1.001-1.035); Urobilinogen,Urine <2.0 mg/dL (<2.0)
[2023-09-16 01:07] LABS: Amphetamine Screen,Urine Not Detected (NotDetected); Barbiturate Screen,Urine Not Detected (NotDetected); Benzodiazepines Screen,Urine Not Detected (NotDetected); Cocaine Screen,Urine Not Detected (NotDetected); Methadone Screen, Urine Not Detected (NotDetected); Opiate Screen,Urine Not Detected (NotDetected); Oxycodone Screen, Urine Not Detected (NotDetected); Phencyclidine Screen,Urine Not Detected (NotDetected); Tricyclic Antidepressant,Urine Not Detected (NotDetected); Urn Cannabinoid Scrn Not Detected (NotDetected)
[2023-09-16] MEDS: traZODone HCL 100 MG TAB PO SCH (01:35)
[2023-09-16 07:54] LABS: Basophils % (A) 0 %; Eosinophils # (A) 0.7 k/uL (0-0.7); Eosinophils % (A) 9 %; HCT 49.5 % (39.0-53.0); HGB 16.7 gm/dL (13.0-17.5); Lymphocytes # (A) 2.1 k/uL (1.0-4.8); Lymphocytes % (A) 26 %; MCH 29.5 pg (25.0-35.0); MCHC 33.7 g/dL (31.0-37.0); MCV 87.5 fL (80.0-100.0); Mean Platelet Volume 7.6; Monocytes # (A) 0.5 k/uL (0-1.0); Monocytes % (A) 7 %; Neutrophils # (A) 4.5 k/uL (1.3-7.7); Neutrophils % (A) 57 %; Platelet Count 205 k/uL (150-450); RBC 5.66 m/uL (4.30-5.90); RDW 13.3 % (11.5-15.5)
[2023-09-16 08:14] LABS: ALT 38 U/L (4-49); AST 41 U/L (17-59); African American GFR (CKD) >90 (>60 ml/min/1.73 sqM); Albumin 4.6 g/dL (3.5-5.0); Alkaline Phosphatase 66 U/L (38-126); Anion Gap 8 mmol/L; Blood Urea Nitrogen 19 mg/dL (9-20); Calcium 9.4 mg/dL (8.4-10.2); Carbon Dioxide 26 mmol/L (22-30); Chloride 106 mmol/L (98-107); Glucose 97 mg/dL (74-99); Non-African American GFR(CKD) >90 (>60 ml/min/1.73 sqM); Potassium 4.1 mmol/L (3.5-5.1); Sodium 140 mmol/L (137-145); Total Bilirubin 1.1 mg/dL (0.2-1.3); Total Protein 6.8 g/dL (6.3-8.2)
[2023-09-16] MEDS ORDERED: NICOTINE 14MG/24HR PATCH TRANSDERM SCH (09:00)
--- NOTE | 2023-09-16 11:15 | P.HP ---
Psychiatric H&P - . H&P Date: 09/16/23 History & Physical: Allergies Allergy/AdvReac Type Severity Reaction Status Date / Time hydromorphone HCl Allergy Intermediate Rash/Hives/ Verified 09/15/23 20:26 From Dilaudid Itching metoclopramide HCl AdvReac Severe Anxiety Verified 09/15/23 20:26 From Reglan Vital Signs Temp 97.0 F L 09/15/23 23:05 Pulse 108 H 09/15/23 23:05 Resp 18 09/15/23 23:05 BP 126/72 09/15/23 23:05 Pulse Ox 98 09/15/23 23:05 FiO2 Intake & Output 09/15/23 09/16/23 09/16/23 18:59 06:59 18:59 Weight 79.379 kg 75.92 kg Laboratory Last Values WBC 8.0 k/uL (3.8-10.6) 09/16/23 07:11 RBC 5.66 m/uL (4.30-5.90) 09/16/23 07:11 Hgb 16.7 gm/dL (13.0-17.5) 09/16/23 07:11 Hct 49.5 % (39.0-53.0) 09/16/23 07:11 MCV 87.5 fL (80.0-100.0) 09/16/23 07:11 MCH 29.5 pg (25.0-35.0) 09/16/23 07:11 MCHC 33.7 g/dL (31.0-37.0) 09/16/23 07:11 RDW 13.3 % (11.5-15.5) 09/16/23 07:11 Plt Count 205 k/uL (150-450) 09/16/23 07:11 MPV 7.6 09/16/23 07:11 Neutrophils % 57 % 09/16/23 07:11 Lymphocytes % 26 % 09/16/23 07:11 Monocytes % 7 % 09/16/23 07:11 Eosinophils % 9 % 09/16/23 07:11 Basophils % 0 % 09/16/23 07:11 Neutrophils # 4.5 k/uL (1.3-7.7) 09/16/23 07:11 Lymphocytes # 2.1 k/uL (1.0-4.8) 09/16/23 07:11 Monocytes # 0.5 k/uL (0-1.0) 09/16/23 07:11 Eosinophils # 0.7 k/uL (0-0.7) 09/16/23 07:11 Basophils # 0.0 k/uL (0-0.2) 09/16/23 07:11 Sodium 140 mmol/L (137-145) 09/16/23 07:11 Potassium 4.1 mmol/L (3.5-5.1) 09/16/23 07:11 Chloride 106 mmol/L (98-107) 09/16/23 07:11 Carbon Dioxide 26 mmol/L (22-30) 09/16/23 07:11 Anion Gap 8 mmol/L 09/16/23 07:11 BUN 19 mg/dL (9-20) 09/16/23 07:11 Creatinine 0.90 mg/dL (0.66-1.25) 09/16/23 07:11 Est GFR (CKD-EPI)AfAm >90 (>60 ml/min/1.73 sqM) 09/16/23 07:11 Est GFR (CKD-EPI)NonAf >90 (>60 ml/min/1.73 sqM) 09/16/23 07:11 Glucose 97 mg/dL (74-99) 09/16/23 07:11 Calcium 9.4 mg/dL (8.4-10.2) 09/16/23 07:11 Total Bilirubin 1.1 mg/dL (0.2-1.3) 09/16/23 07:11 AST 41 U/L (17-59) 09/16/23 07:11 ALT 38 U/L (4-49) 09/16/23 07:11 Alkaline Phosphatase 66 U/L (38-126) 09/16/23 07:11 Total Protein 6.8 g/dL (6.3-8.2) 09/16/23 07:11 Albumin 4.6 g/dL (3.5-5.0) 09/16/23 07:11 Urine Color Yellow 09/15/23 23:53 Urine Appearance Clear (Clear) 09/15/23 23:53 Urine pH 6.0 (5.0-8.0) 09/15/23 23:53 Ur Specific [place] 1.033 (1.001-1.035) 09/15/23 23:53 Urine Protein Trace (Negative) H 09/15/23 23:53 Urine Glucose (UA) Negative (Negative) 09/15/23 23:53 Urine Ketones 2+ (Negative) H 09/15/23 23:53 Urine Blood Negative (Negative) 09/15/23 23:53 Urine Nitrite Negative (Negative) 09/15/23 23:53 Urine Bilirubin Negative (Negative) 09/15/23 23:53 Urine Urobilinogen <2.0 mg/dL (<2.0) 09/15/23 23:53 Ur Leukocyte Esterase Negative (Negative) 09/15/23 23:53 Urine Opiates Screen Not Detected (NotDetected) 09/15/23 23:53 Ur Oxycodone Screen Not Detected (NotDetected) 09/15/23 23:53 Urine Methadone Screen Not Detected (NotDetected) 09/15/23 23:53 Ur Barbiturates Screen Not Detected (NotDetected) 09/15/23 23:53 U Tricyclic Antidepress Not Detected (NotDetected) 09/15/23 23:53 Ur Phencyclidine Scrn Not Detected (NotDetected) 09/15/23 23:53 Ur Amphetamines Screen Not Detected (NotDetected) 09/15/23 23:53 U Methamphetamines Scrn Not Detected (NotDetected) 09/15/23 23:53 U Benzodiazepines Scrn Not Detected (NotDetected) 09/15/23 23:53 Urine Cocaine Screen Not Detected (NotDetected) 09/15/23 23:53 U Marijuana (THC) Screen Not Detected (NotDetected) 09/15/23 23:53 Influenza Type A (PCR) Not Detected (Not Detectd) 09/15/23 20:40 Influenza Type B (PCR) Not Detected (Not Detectd) 09/15/23 20:40 RSV (PCR) Not Detected (Not Detectd) 09/15/23 20:40 SARS-CoV-2 (PCR) Not Detected (Not Detectd) 09/15/23 20:40 09/16/23 08:31 IDENTIFYING DATA: Patient is a Patient is a 23-year-old male with a history of schizoaffective disorder: Bipolar type patient lives with his mother, stepfather, 2 sisters, and 2 half brothers. Patient is unemployed. Patient does not have a guardian. He is on a deferral until 02/15/2024. HPI: Patient presented to the hospital on . As per EPS note, "He appears unkempt. Pts mother petitioned pt which states, ""He is convinced he is the antichrist. He refuses to kira emedication says it is witch craft. He has violent outbursts. Delusional and paranoid. He believes masons are praying curses over him". Pt is religiously preoccupied. He states from 8 years old to recent he believed that he was the antichrist. Per mother he still states that he is. He states, "I am a follower of [facility], I know I am not George yet, but I want to be him". Pt was preaching the bible and quoting scripture during assessment. Pt admits that his parents are witches and he has yelled at his parents d/t sikh. He believes that he is cursed and being curses with intrusive thoughts of the anti george and wanting to verbalize "Hail Satan". Pt struggles with sleep d/t racing thoughts. He states he takes his Trazodone occasionally. RN did remind pt of his deferral order and that medications and treatment are required. He admits to on and off suicidal thoughts and believes those are a curse from [facility] as well. He has no plan or intent. Denies HI. Denies any ETOH or substance use." Upon today's interview, he states that when he last left the hospital, he was taking the medications, and only missed trazodone one dose. He states he believes he needs to be in a mosque, not the hospital. He states he found himself, and needs to be in a mosque. He was fairly religiously preoccupied and appeared to be internally preoccupied as well. He states the free masons are out to hurt him, but he states it's hard to explain what they are going to do to him. Pauses several times when asked about this, very religiously preoccupied. He states he has trouble sleeping, but his appetite is good. Patient denies any suicidal or homicidal ideations intent or plan. At this time patient denies any auditory or visual hallucinations. Patient denies any flight of ideas racing thoughts and increased in goal directed behavior. Patient denies using recreational drugs. PAST PSYCHIATRIC HISTORY: history of schizoaffective disorder, bipolar type. Admitted in 2021 and 2023 for psychosis and stephy and noncompliance. Is on Abilify long-acting injection, last dose given 08/21/23, next dose due 09/19/23. Has also been on trazodone and Lamictal in the past. Last admitted to this unit in July 2023. Has had multiple suicide attempts in the past by hanging himself. Last suicide attempt was at age 15. PMH:As per ER note ALLERGIES: as per EMR CHEMICAL DEPENDENCY HISTORY: as per HPI FAMILY PSYCHIATRIC/SUBSTANCE USE HISTORY: Mother has depression, no substance use, mother and sister have attempted suicide in the past SOCIAL HISTORY: Patient was born and raised in [place]. He completed up to the 10th grade. He is single, never , and has no children. He reports a Jewish amena. He currently lives with his mother, 2 sisters, and 2 half- brothers. Denies any legal issues MENTAL STATUS EXAM: General Appearance: Patient appears to be stated age is alert, directable, and attempts to cooperate. Patient appears to have adequate hygiene and grooming. Behavior: Patient is seated without any agitated behavior. Very poor eye contact. Appears to be internally preoccupied Speech: Patient's speech is fluent and nonpressured. Low tone. [place]. Mood/Affect: Patient reports their mood is depressed, affect is congruent and constricted. Suicidality/Homicidality: Patient denies having any homicidal ideation intent or plan. Denies any suicidal ideations intent or plan Perceptions: Patient denies any visual hallucinations and denies any auditory hallucinations. Thought blocking, religiously preoccupied. Though content/process: There is evidence of delusional thought content patient believes he is antichrist and that he is cursed. Memory and concentration: AOX3, grossly intact for the purposes of this session. Can spell "WORLD" backwards Judgment and insight: Poor STRENGTHS/WEAKNESSES: Strength is that the patient has a supportive family. Weakness the patient has severe mental illness and nonadherence with treatment. INTELLECT: Average IMPRESSIONS: Schizoaffective disorder, bipolar type PLAN: -Patient is admitted under involuntary status to [facility] for stabilization of psychiatric symptoms and safety. Patient has not signed adult voluntary form or medication consent and is placed in patient's chart. Patient was previously on a deferral, A demand will be filed for court. -Medications : Will start patient on Invega 3mg bid for mood stabilization. T razodone 100mg qhs prn -Ativan and Haldol PRN for agitation/aggression -Patient was informed of the risks, benefits and side effects of the medication and patient verbally consented to taking the medications. -Internal Medicine consult to perform medical evaluation and physical. -NRT -nicotine patch -SW on board for discharge planning. Encourage patient to participate in groups to work on coping skills. Will await court date.
[2023-09-16] MEDS: PALIPERIDONE 3 MG TAB.ER.24 PO SCH (12:15)
[2023-09-16] MEDS: haloperidoL 5 MG TAB PO PRN (15:00)
[2023-09-16] MEDS: LORazepam 1 MG TAB PO PRN (15:00)
[2023-09-16] MEDS ORDERED: traZODone HCL 100 MG TAB PO SCH (21:00)
[2023-09-16] MEDS: traZODone HCL 100 MG TAB PO PRN (21:21)
[2023-09-17] MEDS: ACETAMINOPHEN TAB 325 MG TAB PO PRN (00:49)
--- NOTE | 2023-09-17 18:13 | P.PN ---
Progress Note - Text Progress Note Date: 09/17/23 Interval history: Patient was seen wandering the hallways and was directable and agreeable to speak with science writer. He appears restless. He reports he is having difficulty falling and staying asleep at night; he is recorded as sleeping 5 hours of interrupted sleep last night, despite taking Trazodone 100 mg QHS PRN last night. He spent his day pacing the halls, reading the Bible. At this time patient denies any suicidal or homicidal ideation, intent or plan. His mood is "stressed". He denies any auditory or visual hallucinations. Patient denies any side effects from the medications and has been compliant with meds. He complains of nasal congestion and is breathing loudly through his mouth so we will start some Claritin for him. Mental status exam: General Appearance: Patient appears to be stated age is alert, dressed in hospital gown, unshaven. Behavior: No agitated behavior. Patient is calm and directable. Poor eye contact. Speech: Patient's speech is fluent and non-pressured. Nonspontaneous. Mood/Affect: Mood is improving mildly, affect is odd/constricted. Suicidality/Homicidality: Patient denies having any suicidal or homicidal ideation intent or plan. Perceptions: Patient denies any auditory or visual hallucinations, but appears internally preoccupied. Though content/process: There is no evidence of any delusional thought content and thought process is linear and goal-directed. Memory and concentration: AOX3, grossly intact for the purposes of this session Judgment and insight: Improving mildly Assessment/Plan: Continue with current diagnosis. Patient continues to meet criteria for inpatient psychiatric admission for symptom stabilization and safety. Increase Trazodone to 150 mg QHS PRN for sleep. Start Claritin 10 mg daily for nasal congestion. Continue Invega 3 mg BID for today with plan to increase tomorrow. Monitor for medication compliance and for any psychotropic medication side effects. Will continue to monitor ongoing response to treatment. Encouraged participation in milieu.
[2023-09-17] MEDS: LORATADINE 10 MG TAB PO SCH (18:44)
[2023-09-17] MEDS: traZODone HCL 100 MG TAB PO PRN (19:41)
[2023-09-18] MEDS: PALIPERIDONE 6 MG TAB.ER.24 PO SCH (20:40)
--- NOTE | 2023-09-18 22:02 | P.PN ---
Progress Note - Text Progress Note Date: 09/18/23 Interval history: Patient was seen pacing the hallways and was directable and agreeable to speak with advertising copywriter. He appears somewhat anxious, but is calm and attempts to cooperate. He expresses paranoid delusional thoughts about his family, claims his grandfather was in a cult (the [employer]), and he senses the rest of his family is a part of the [employer]. He appears to be internally preoccupied and responding to internal stimuli while he paces the hallways. At this time patient denies any suicidal or homicidal ideation, intent or plan. Patient denies any side effects from the medications and has been compliant with meds. He nasal congestion has improved with Claritin. Mental status exam: General Appearance: Patient appears to be stated age is alert, dressed in hospital gown, unshaven. Behavior: No agitated behavior. Patient is calm and directable. Poor eye cont act. Spends most of his free time pacing the hallways. Speech: Patient's speech is fluent and non-pressured. Mood/Affect: Mood is improving mildly, affect is odd/constricted. Suicidality/Homicidality: Patient denies having any suicidal or homicidal ideation intent or plan. Perceptions: He appears to be internally preoccupied and responding to internal stimuli while he paces the hallways. Though content/process: There is evidence of paranoid delusional thought content and thought process is linear. Memory and concentration: AOX3, grossly intact for the purposes of this session Judgment and insight: Improving mildly Assessment/Plan: Continue with current diagnosis. Patient continues to meet criteria for inpatient psychiatric admission for symptom stabilization and safety. Increase Invega to 3 mg QAM and 6 mg QHS for psychosis starting tonight. Monitor for medication compliance and for any psychotropic medication side effects. Will continue to monitor ongoing response to treatment. Encouraged participation in milieu.
[2023-09-19] MEDS: PALIPERIDONE 3 MG TAB.ER.24 PO SCH (08:12)
--- NOTE | 2023-09-19 12:06 | P.PN ---
Subjective Progress Note Date: 09/19/23 Principal diagnosis: Psychotic disorder unspecified Schizoaffective disorder unspecified Patient Name: Jae Hyman Date of : 89 Patient Status: Inpatient Attending Provider: Vern Jorge Date: 11/08 Patient was seen pacing the hallways and was directable and agreeable to speak with casualty underwriter. He appears somewhat anxious, but is calm and attempts to cooperate. Patient did not express any paranoid thoughts about his family Follow however is an excerpt from the assessment from the previous day from the last psychiatrist: ''He expresses paranoid delusional thoughts about his family, claims his grandfather was in a cult (the [employer]), and he senses the rest of his family is a part of the [employer].'' He appears to be internally preoccupied and responding to internal stimuli while he paces the hallways. At this time patient denies any suicidal or homicidal ideation, intent or plan. Patient denies any side effects from the medications and has been compliant with meds. He nasal congestion has improved with Claritin. Mental status exam: General Appearance: Patient appears to be stated age is alert, dressed in hospital gown, unshaven. Behavior: No agitated behavior. Patient is calm and directable. Poor eye contact. Spends most of his free time pacing the hallways. Speech: Patient's speech is fluent and non-pressured. Mood/Affect: Mood is improving mildly, affect is odd/constricted. Suicidality/Homicidality: Patient denies having any suicidal or homicidal ideation intent or plan. Perceptions: He appears to be internally preoccupied and responding to internal stimuli while he paces the hallways. Though content/process: There is evidence of paranoid delusional thought content and thought process is linear. Memory and concentration: AOX3, grossly intact for the purposes of this session Judgment and insight: Improving mildly Assessment/Plan: Continue with current diagnosis. Patient continues to meet criteria for inpatient psychiatric admission for symptom stabilization and safety. Increase Invega to 3 mg QAM and 6 mg QHS for psychosis starting tonight. Monitor for medication compliance and for any psychotropic medication side effects. Will continue to monitor ongoing response to treatment. Encouraged participation in milieu. Gallo Portillo M.D. Objective - Vital Signs Vital signs: Vital Signs Temp 98.1 F 09/19/23 06:00 Pulse 96 09/19/23 06:00 Resp 18 09/19/23 06:00 BP 126/66 09/19/23 06:00 Pulse Ox 99 09/19/23 06:00 FiO2 Intake & Output 09/18/23 09/19/23 09/19/23 18:59 06:59 18:59 Weight 80.2 kg - Labs CBC & Chem 7: 09/16/23 07:11 09/16/23 07:11
--- NOTE | 2023-09-20 11:55 | P.PN ---
Subjective Progress Note Date: 09/20/23 Principal diagnosis: Psychotic disorder unspecified Schizoaffective disorder unspecified Patient Name: Jae Hyman Date of : 89 Patient Status: Inpatient Attending Provider: Vern Jorge Date: 09/20/23 Patient was seen pacing the hallways and was directable and agreeable to speak with staff writer. but is calm and attempts to cooperate. Patient did not express any paranoid thoughts about his family Patient when asked about his symptoms admits that he is not expressing any paranoid thoughts He admits that he had thoughts before where he thought that he was the antichrist He denies that he is having any other hallucinations Mental status exam: General Appearance: Patient appears to be stated age is alert, dressed in hospital gown, unshaven. Behavior: No agitated behavior. Patient is calm and directable. Poor eye contact. Spends most of his free time pacing the hallways. Speech: Patient's speech is fluent and non-pressured. Mood/Affect: Mood is improving mildly, affect is odd/constricted. Suicidality/Homicidality: Patient denies having any suicidal or homicidal ideation intent or plan. Perceptions: He appears to be internally preoccupied and responding to internal stimuli while he paces the hallways. Though content/process: There is evidence of paranoid delusional thought content and thought process is linear. Memory and concentration: AOX3, grossly intact for the purposes of this session Judgment and insight: Improving mildly Assessment/Plan: Continue with current diagnosis. Patient continues to meet criteria for inpatient psychiatric admission for symptom stabilization and safety. Continue Invega to 3 mg QAM and 6 mg QHS for psychosis Monitor for medication compliance and for any psychotropic medication side effects. Will continue to monitor ongoing response to treatment. Encouraged participation in debra. Gallo Portillo M.D. Objective - Vital Signs Vital signs: Vital Signs Temp 97.5 F L 09/20/23 05:26 Pulse 92 09/20/23 05:26 Resp 16 09/20/23 05:26 BP 128/69 09/20/23 05:26 Pulse Ox 99 09/19/23 06:00 FiO2 - Labs CBC & Chem 7: 09/16/23 07:11 09/16/23 07:11
--- NOTE | 2023-09-20 18:30 | P.HPMEDMHU ---
History of Present Illness H&P Date: 09/20/23 Patient is a 23-year-old male with a past medical history of asthma who is admitted to [facility] for schizoaffective disorder. Patient currently denying any shortness of breath. He denies any chest pain nausea vomiting or diarrhea. Patient states that his last alcohol drink was 2 weeks ago. He denies use of drugs or smoking tobacco. Patient states that his asthma is usually exacerbated by allergies and exercise. Review of systems: ROS Physical exam General: [Alert and oriented, well nourished, no acute distress]. Eye: [PERRL, EOMI, normal conjunctiva]. HENT: [Normocephalic, clear tympanic membranes, normal hearing, moist oral mucosa, no scleral icterus, no sinus tenderness]. Neck: [Supple, non-tender, no carotid bruits, no JVD, no lymphadenopathy]. Lungs: [Clear to auscultation and percussion, non-labored respiration]. Heart: [Normal rate, regular rhythm, no murmur, gallop or edema]. Abdomen: [Soft, non-tender, non-distended, normal bowel sounds, no masses]. Musculoskeletal: [Normal range of motion and strength, no tenderness or swel ling]. Skin: [Skin is warm, dry and pink, no rashes or lesions]. Neurologic: [Awake, alert, and oriented X3, CN II-XII intact]. Psychiatric: [Cooperative, appropriate mood and affect]. Assessment and plan Alcohol use Patient counseled on safe alcohol use Asthma Stable Schizoaffective disorder Will defer to psychiatry Please do not hesitate to call us with any medical questions Past Medical History Past Medical History: Asthma Additional Past Medical History / Comment(s): RUPTURED APPENDEX 04/2015. cat allergies. History of Any Multi-Drug Resistant Organisms: None Reported Past Surgical History: Appendectomy, Tonsillectomy Past Anesthesia/Blood Transfusion Reactions: No Reported Reaction Smoking Status: Never smoker - Past Family History Mother Family Medical History: No Reported History Medications and Allergies Home Medications Medication Instructions Recorded Confirmed Type traZODone HCL [Desyrel] 200 mg PO HS 30 Days #60 tab 08/22/23 09/15/23 Rx ARIPiprazole IM [Abiliviviana Maintena] 400 mg IM Q30D 09/15/23 09/15/23 History Allergies Allergy/AdvReac Type Severity Reaction Status Date / Time hydromorphone HCl Allergy Intermediate Rash/Hives/ Verified 09/15/23 20:26 [From Dilaudid] Itching metoclopramide HCl AdvReac Severe Anxiety Verified 09/15/23 20:26 [From Reglan] Physical Exam Osteopathic Statement: *. No significant issues noted on an osteopathic structural exam other than those noted in the History and Physical/Consult. Vitals: Vital Signs Temp Pulse Resp BP 09/20/23 05:26 97.5 F L 92 16 128/69 Cranial Nerve Examination - Cranial Nerves Cranial Nerve I- Olfactory: Intact Cranial Nerve II- Optic: Intact Cranial Nerve III- Oculomotor: Intact Cranial Nerve IV- Trochlear: Intact Cranial Nerve V- Trigeminal: Intact Cranial Nerve - Abducens: Intact Cranial Nerve VII- Facial: Intact Cranial Nerve VIII- Auditory: Intact Cranial Nerve IX- Glossopharyngeal: Intact Cranial Nerve X- Vagus: Intact Cranial Nerve XI- Accessory: Intact Cranial Nerve XII- Hypoglossal: Intact Results CBC & Chem 7: 09/16/23 07:11 09/16/23 07:11 Thrombosis Risk Factor Assmnt - Choose All That Apply Any of the Below Risk Factors Present?: No Other Risk Factors: No Other congenital or acquired thrombophilia - If yes, enter type in comment: No Thrombosis Risk Factor Assessment Level: Very Low Risk
--- NOTE | 2023-09-21 09:02 | P.PN ---
Subjective Progress Note Date: 09/21/23 Principal diagnosis: Psychotic disorder unspecified Schizoaffective disorder unspecified Patient Name: Jae Hyman Date of : 89 Patient Status: Inpatient Attending Provider: Vern Jorge Date: 09/21/23 Patient was seen pacing the hallways and was directable and agreeable to speak with adjusto writer operator. but is calm and attempts to cooperate. Patient did not express any paranoid thoughts about his family Patient when asked about his symptoms admits that he is not expressing any paranoid thoughts He admits that he had thoughts before where he thought that he was the antichrist He denies that he is having any other hallucinations Patient admits that he has a court date coming up next week and that he plans to defer decision to the treatment team and that he is in agreement that he does need to help and he does need the medications He denies any side effects from his current treatment medications Mental status exam: General Appearance: Patient appears to be stated age is alert, dressed in hospital gown, unshaven. Behavior: No agitated behavior. Patient is calm and directable. Poor eye contact. Spends most of his free time pacing the hallways. Speech: Patient's speech is fluent and non-pressured. Mood/Affect: Mood is improving mildly, affect is odd/constricted. Suicidality/Homicidality: Patient denies having any suicidal or homicidal ideation intent or plan. Perceptions: He appears to be internally preoccupied and responding to internal stimuli while he paces the hallways. Though content/process: There is evidence of paranoid delusional thought content and thought process is linear. Memory and concentration: AOX3, grossly intact for the purposes of this session Judgment and insight: Improving mildly Assessment/Plan: Patient is much more insightful and has plans to continue in treatment and follow-up Patient however has a court date which is mandatory at this time Continue with current diagnosis. Patient continues to meet criteria for inpatient psychiatric admission for symptom stabilization and safety. Continue Invega to 3 mg QAM and 6 mg QHS for psychosis Monitor for medication compliance and for any psychotropic medication side effects. Will continue to monitor ongoing response to treatment. Encouraged participation in debra. Gallo Portillo M.D. Objective - Vital Signs Vital signs: Vital Signs Temp 97.8 F 09/21/23 06:42 Pulse 100 09/21/23 06:42 Resp 16 09/21/23 06:42 BP 114/68 09/21/23 06:42 Pulse Ox 96 09/21/23 06:42 FiO2 - Labs CBC & Chem 7: 09/16/23 07:11 09/16/23 07:11
--- NOTE | 2023-09-22 08:31 | P.PN ---
Subjective Progress Note Date: 09/22/23 Principal diagnosis: Psychotic disorder unspecified Schizoaffective disorder unspecified Patient Name: Jae Hyman Date of : 89 Patient Status: Inpatient Attending Provider: Vern Jorge Date: 09/22/23 Conversation was similar to yesterday Patient was seen pacing the hallways and was directable and agreeable to speak with manual writer. but is calm and attempts to cooperate. Patient did not express any paranoid thoughts about his family Patient when asked about his symptoms admits that he is not expressing any paranoid thoughts He admits that he had thoughts before where he thought that he was the a ntichrist He denies that he is having any other hallucinations Patient admits that he has a court date coming up next week and that he plans to defer decision to the treatment team and that he is in agreement that he does need to help and he does need the medications He denies any side effects from his current treatment medications Mental status exam: General Appearance: Patient appears to be stated age is alert, dressed in hospital gown, unshaven. Behavior: No agitated behavior. Patient is calm and directable. Poor eye contact. Spends most of his free time pacing the hallways. Speech: Patient's speech is fluent and non-pressured. Mood/Affect: Mood is improving mildly, affect is odd/constricted. Suicidality/Homicidality: Patient denies having any suicidal or homicidal ideation intent or plan. Perceptions: He appears to be internally preoccupied and responding to internal stimuli while he paces the hallways. Though content/process: There is evidence of paranoid delusional thought content and thought process is linear. Memory and concentration: AOX3, grossly intact for the purposes of this session Judgment and insight: Improving mildly Assessment/Plan: Patient is much more insightful and has plans to continue in treatment and follow-up Patient however has a court date which is mandatory at this time Continue with current diagnosis. Patient continues to meet criteria for inpatient psychiatric admission for symptom stabilization and safety. Continue Invega to 3 mg QAM and 6 mg QHS for psychosis Monitor for medication compliance and for any psychotropic medication side effects. Will continue to monitor ongoing response to treatment. Encouraged participation in milieu. Gallo Lindsey M.D. Objective - Vital Signs Vital signs: Vital Signs Temp 97.9 F 09/22/23 06:50 Pulse 61 09/22/23 06:50 Resp 16 09/22/23 06:50 BP 119/59 09/22/23 06:50 Pulse Ox 96 09/21/23 06:42 FiO2 - Labs CBC & Chem 7: 09/16/23 07:11 09/16/23 07:11
--- NOTE | 2023-09-23 08:53 | P.PN ---
Subjective Progress Note Date: 09/23/23 Principal diagnosis: Psychotic disorder unspecified Schizoaffective disorder unspecified Patient Name: Jae Hyman Date of : [birth year] Patient Status: Inpatient Attending Provider: Vern Jorge Date: 09/23/23 Conversation was similar to yesterday Patient was seen pacing the hallways and was directable and agreeable to speak with remote mortgage underwriter. but is calm and attempts to cooperate. Patient did not express any paranoid thoughts about his family Patient when asked about his symptoms admits that he is not expressing any paranoid thoughts He admits that he had thoughts before where he thought that he was the a ntichrist He denies that he is having any other hallucinations Patient admits that he has a court date coming up next week and that he plans to defer decision to the treatment team and that he is in agreement that he does need to help and he does need the medications He denies any side effects from his current treatment medications Mental status exam: General Appearance: Patient appears to be stated age is alert, dressed in hospital gown, unshaven. Behavior: No agitated behavior. Patient is calm and directable. Poor eye contact. Spends most of his free time pacing the hallways. Speech: Patient's speech is fluent and non-pressured. Mood/Affect: Mood is improving mildly, affect is odd/constricted. Suicidality/Homicidality: Patient denies having any suicidal or homicidal ideation intent or plan. Perceptions: He appears to be internally preoccupied and responding to internal stimuli while he paces the hallways. Though content/process: There is evidence of paranoid delusional thought content and thought process is linear. Memory and concentration: AOX3, grossly intact for the purposes of this session Judgment and insight: Improving mildly Assessment/Plan: Patient is much more insightful and has plans to continue in treatment and follow-up Patient however has a court date which is mandatory at this time Continue with current diagnosis. Patient continues to meet criteria for inpatient psychiatric admission for symptom stabilization and safety. Continue Invega to 3 mg QAM and 6 mg QHS for psychosis Monitor for medication compliance and for any psychotropic medication side effects. Will continue to monitor ongoing response to treatment. Encouraged participation in debra. Gallo Lindsey M.D. Objective - Vital Signs Vital signs: Vital Signs Temp 98.3 F 09/23/23 06:39 Pulse 81 09/23/23 06:39 Resp 14 09/23/23 06:39 BP 106/59 09/23/23 06:39 Pulse Ox 96 09/21/23 06:42 FiO2 - Labs CBC & Chem 7: 09/16/23 07:11 09/16/23 07:11
--- NOTE | 2023-09-24 09:48 | P.PN ---
Subjective Progress Note Date: 09/24/23 Principal diagnosis: Psychotic disorder unspecified Schizoaffective disorder unspecified Patient Name: Jae Hyman Date of : 89 Patient Status: Inpatient Attending Provider: Vern Jorge Date: 09/24/23 Conversation was similar to yesterday Patient try to confirm that he most likely will be able to leave after the court date since it is now feels like back to his old self Patient is positive about his outpatient treatment plans to follow-up as recommended Patient was seen pacing the hallways and was directable and agreeable to speak with medical underwriter. but is calm and attempts to cooperate. Patient did not express any paranoid thoughts about his family Patient when asked about his symptoms admits that he is not expressing any paranoid thoughts He admits that he had thoughts before where he thought that he was the antichrist He denies that he is having any other hallucinations Patient admits that he has a court date coming up next week and that he plans to defer decision to the treatment team and that he is in agreement that he does need to help and he does need the medications He denies any side effects from his current treatment medications Mental status exam: General Appearance: Patient appears to be stated age is alert, dressed in hospital gown, unshaven. Behavior: No agitated behavior. Patient is calm and directable. Poor eye contact. Spends most of his free time pacing the hallways. Speech: Patient's speech is fluent and non-pressured. Mood/Affect: Mood is improving mildly, affect is odd/constricted. Suicidality/Homicidality: Patient denies having any suicidal or homicidal ideation intent or plan. Perceptions: He appears to be internally preoccupied and responding to internal stimuli while he paces the hallways. Though content/process: There is evidence of paranoid delusional thought content and thought process is linear. Memory and concentration: AOX3, grossly intact for the purposes of this session Judgment and insight: Improving mildly Assessment/Plan: Patient is much more insightful and has plans to continue in treatment and follow-up Patient however has a court date which is mandatory at this time Continue with current diagnosis. Patient continues to meet criteria for inpatient psychiatric admission for symptom stabilization and safety. Continue Invega to 3 mg QAM and 6 mg QHS for psychosis Monitor for medication compliance and for any psychotropic medication side effects. Will continue to monitor ongoing response to treatment. Encouraged participation in milieu. Gallo Portillo M.D. Objective - Vital Signs Vital signs: Vital Signs Temp 97.8 F 09/24/23 07:54 Pulse 82 09/24/23 07:54 Resp 18 09/24/23 07:54 BP 119/63 09/24/23 07:54 Pulse Ox 96 09/21/23 06:42 FiO2 - Labs CBC & Chem 7: 09/16/23 07:11 09/16/23 07:11
--- NOTE | 2023-09-25 10:36 | P.PN ---
Subjective Progress Note Date: 09/25/23 Principal diagnosis: Psychotic disorder unspecified Schizoaffective disorder unspecified Patient Name: Jae Hyman Date of : [birth year] Patient Status: Inpatient Attending Provider: Vern Jorge Date: 09/25/23 Conversation was similar to yesterday Patient try to confirm that he most likely will be able to leave after the court date since it is now feels like back to his old self Patient is positive about his outpatient treatment plans to follow-up as recommended Patient was seen pacing the hallways and was directable and agreeable to speak with health technical writer. but is calm and attempts to cooperate. Patient did not express any paranoid thoughts about his family Patient when asked about his symptoms admits that he is not expressing any paranoid thoughts He admits that he had thoughts before where he thought that he was the antichrist He denies that he is having any other hallucinations Patient admits that he has a court date coming up next week and that he plans to defer decision to the treatment team and that he is in agreement that he does need to help and he does need the medications He denies any side effects from his current treatment medications Mental status exam: General Appearance: Patient appears to be stated age is alert, dressed in hospital gown, unshaven. Behavior: No agitated behavior. Patient is calm and directable. Poor eye contact. Spends most of his free time pacing the hallways. Speech: Patient's speech is fluent and non-pressured. Mood/Affect: Mood is improving mildly, affect is odd/constricted. Suicidality/Homicidality: Patient denies having any suicidal or homicidal ideation intent or plan. Perceptions: He appears to be internally preoccupied and responding to internal stimuli while he paces the hallways. Though content/process: There is evidence of paranoid delusional thought content and thought process is linear. Memory and concentration: AOX3, grossly intact for the purposes of this session Judgment and insight: Improving mildly Assessment/Plan: Patient is much more insightful and has plans to continue in treatment and follow-up Patient however has a court date which is mandatory at this time Continue with current diagnosis. Patient continues to meet criteria for inpatient psychiatric admission for symptom stabilization and safety. Continue Invega to 3 mg QAM and 6 mg QHS for psychosis Monitor for medication compliance and for any psychotropic medication side effects. Will continue to monitor ongoing response to treatment. Encouraged participation in milieu. Gallo Portillo M.D. Objective - Vital Signs Vital signs: Vital Signs Temp 97.8 F 09/25/23 06:46 Pulse 78 09/25/23 06:46 Resp 16 09/25/23 06:46 BP 117/60 09/25/23 06:46 Pulse Ox 96 09/21/23 06:42 FiO2 - Labs CBC & Chem 7: 09/16/23 07:11 09/16/23 07:11
--- NOTE | 2023-09-26 09:17 | P.PN ---
Subjective Progress Note Date: 09/26/23 Principal diagnosis: Psychotic disorder unspecified Schizoaffective disorder unspecified Patient Name: Jae Hyman Date of : [birth year] Patient Status: Inpatient Attending Provider: Vern Jorge Date: 09/26/23 Conversation was similar to yesterday Patient continues to walk and pacing but did not exhibit any agitation He reports that he likes to exercise and maintain his weight Patient try to confirm that he most likely will be able to leave after the court date since it is now feels like back to his old self Patient is positive about his outpatient treatment plans to follow-up as recommended Patient was seen pacing the hallways and was directable and agreeable to speak with creative services writer. but is calm and attempts to cooperate. Patient did not express any paranoid thoughts about his family Patient when asked about his symptoms admits that he is not expressing any paranoid thoughts He admits that he had thoughts before where he thought that he was the antichrist He denies that he is having any other hallucinations Patient admits that he has a court date coming up next week and that he plans to defer decision to the treatment team and that he is in agreement that he does need to help and he does need the medications He denies any side effects from his current treatment medications Mental status exam: General Appearance: Patient appears to be stated age is alert, dressed in hospital gown, unshaven. Behavior: No agitated behavior. Patient is calm and directable. Poor eye contact. Spends most of his free time pacing the hallways. Speech: Patient's speech is fluent and non-pressured. Mood/Affect: Mood is improving mildly, affect is odd/constricted. Suicidality/Homicidality: Patient denies having any suicidal or homicidal ideation intent or plan. Perceptions: He appears to be internally preoccupied and responding to internal stimuli while he paces the hallways. Though content/process: There is evidence of paranoid delusional thought content and thought process is linear. Memory and concentration: AOX3, grossly intact for the purposes of this session Judgment and insight: Improving mildly Assessment/Plan: Patient is much more insightful and has plans to continue in treatment and follow-up Patient however has a court date which is mandatory at this time Continue with current diagnosis. Patient continues to meet criteria for inpatient psychiatric admission for symptom stabilization and safety. Continue Invega to 3 mg QAM and 6 mg QHS for psychosis Monitor for medication compliance and for any psychotropic medication side effects. Will continue to monitor ongoing response to treatment. Encouraged participation in milieu. Gallo Portillo M.D. Objective - Vital Signs Vital signs: Vital Signs Temp 97.2 F L 09/26/23 08:42 Pulse 107 H 09/26/23 08:42 Resp 16 09/26/23 08:42 BP 114/59 09/26/23 08:42 Pulse Ox 97 09/26/23 08:42 FiO2 Intake & Output 09/25/23 09/26/23 09/26/23 18:59 06:59 18:59 Weight 81.8 kg - Labs CBC & Chem 7: 09/16/23 07:11 09/16/23 07:11
[2023-09-26 10:36] VITALS: BMI 23.8
--- NOTE | 2023-09-27 10:05 | P.PN ---
Subjective Progress Note Date: 09/27/23 Principal diagnosis: Psychotic disorder unspecified Schizoaffective disorder unspecified Patient Name: Jae Hyman Date of : [birth year] Patient Status: Inpatient Attending Provider: Vern Jorge Date: 09/27/23 Patient was laying comfortably in his bed and this was the first time that he was seen actually not pacing in the hallway He states that he is tired from his workout from yesterday He denies otherwise any problems or issues He states that his moving forward to the court date tomorrow Patient try to confirm that he most likely will be able to leave after the court date since it is now feels like back to his old self Patient is positive about his outpatient treatment plans to follow-up as recomm ended Patient was seen pacing the hallways and was directable and agreeable to speak with show card writer. but is calm and attempts to cooperate. Patient did not express any paranoid thoughts about his family Patient when asked about his symptoms admits that he is not expressing any paranoid thoughts He admits that he had thoughts before where he thought that he was the antichrist He denies that he is having any other hallucinations Patient admits that he has a court date coming up next week and that he plans to defer decision to the treatment team and that he is in agreement that he does need to help and he does need the medications He denies any side effects from his current treatment medications Mental status exam: General Appearance: Patient appears to be stated age is alert, dressed in hos pital gown, unshaven. Behavior: No agitated behavior. Patient is calm and directable. Poor eye conta ct. Spends most of his free time pacing the hallways. Speech: Patient's speech is fluent and non-pressured. Mood/Affect: Mood is improving mildly, affect is odd/constricted. Suicidality/Homicidality: Patient denies having any suicidal or homicidal ideation intent or plan. Perceptions: He appears to be internally preoccupied and responding to internal stimuli while he paces the hallways. Though content/process: There is evidence of paranoid delusional thought content and thought process is linear. Memory and concentration: AOX3, grossly intact for the purposes of this session Judgment and insight: Improving mildly Assessment/Plan: Patient is much more insightful and has plans to continue in treatment and follow-up Patient however has a court date which is mandatory at this time Continue with current diagnosis. Patient continues to meet criteria for inpatient psychiatric admission for symptom stabilization and safety. Continue Invega to 3 mg QAM and 6 mg QHS for psychosis They have requested be to provide the court services or tomorrow since the other physician is unavailable and would recommend long-acting Invega to be started on the patient With outpatient follow-up with local mental health services Monitor for medication compliance and for any psychotropic medication side effects. Will continue to monitor ongoing response to treatment. Encouraged participation in milieu. Gallo Portillo M.D. Objective - Vital Signs Vital signs: Vital Signs Temp 97.4 F L 09/27/23 02:40 Pulse 86 09/27/23 07:53 Resp 15 09/27/23 02:40 BP 128/62 09/27/23 07:53 Pulse Ox 97 09/26/23 08:42 FiO2 Intake & Output 09/26/23 09/27/23 09/27/23 18:59 06:59 18:59 Weight 81.8 kg - Labs CBC & Chem 7: 09/16/23 07:11 09/16/23 07:11
--- NOTE | 2023-09-28 11:44 | P.PN ---
Progress Note - Text Progress Note Date: 09/28/23 Interval History: Patient was seen in group and was directable and agreeable to speak with health science writer in the office. Patient states he is doing allot better. States he is sleeping well at night, and is attending groups. Admin Prog Coord spoke with patient about switching to a [facility], which will start today. Patient agreeable. Patient was fairly constricted in his affect. Patient states his appetite is good. At this time patient denies any suicidal or homical ideations, intent or plan. Patient denies any auditory, visual hallucinations and denies any paranoia or delusions. Patient denies any side effects from the medications and has been compliant with meds. MENTAL STATUS EXAM: General Appearance: Patient appears to be stated age is alert, directable, and attempts to cooperate. Patient appears to have adequate hygiene and grooming. Behavior: Patient is seated without any agitated behavior. Very poor eye contact. mildly improving Speech: Patient's speech is fluent and nonpressured. Low tone. [place]. improving Mood/Affect: Patient reports their mood is better, affect is congruent and constricted. Suicidality/Homicidality: Patient denies having any homicidal ideation intent or plan. Denies any suicidal ideations intent or plan Perceptions: Patient denies any visual hallucinations and denies any auditory hallucinations. Thought blocking, religiously preoccupied. Though content/process: There is no evidence of delusional thought content Memory and concentration: AOX3, grossly intact for the purposes of this session. Judgment and insight: Poor mildly improving IMPRESSIONS: Schizoaffective disorder, bipolar type PLAN: -Patient is admitted under involuntary status to [facility] for stabilization of psychiatric symptoms and safety. Patient has not signed adult voluntary form or medication consent and is placed in patient's chart. Patient was previously on a deferral, A demand was filed with the court. Patient is now on a full order, as of 09/28/23 -Medications : d/c Invega 3 mg QAM, continue po Invega 6 mg QHS for psychosis . Invega sustenna 234mg IM loading dose today. -Ativan and Haldol PRN for agitation/aggression -NRT -nicotine patch -SW on board for discharge planning. Encourage patient to participate in groups to work on coping skills. Discharge possible later this week vs early next week, once patient is fully transitioned onto [facility]
[2023-09-28] MEDS: PALIPERIDONE IM 234 MG/1.5 ML SYG IM STA (13:45)
--- NOTE | 2023-09-29 11:52 | P.PN ---
Progress Note - Text Progress Note Date: 09/29/23 Interval History: Patient was seen in group and was directable and agreeable to speak with chief underwriter in the office. Patient states he is doing good, and sleeping alot better. Patient is attending groups, and states they are going good for him. Patient was fairly constricted in his affect, but mildly improving. Patient offers no complaints with his ECHEVERRIA. Patient states his appetite is good. At this time patient denies any suicidal or homical ideations, intent or plan. Patient denies any auditory, visual hallucinations and denies any paranoia or delusions. Patient denies any side effects from the medications and has been compliant with meds. MENTAL STATUS EXAM: General Appearance: Patient appears to be stated age is alert, directable, and attempts to cooperate. Patient appears to have adequate hygiene and grooming. Behavior: Patient is seated without any agitated behavior. eye contact. mildly improving Speech: Patient's speech is fluent and nonpressured. Junction. improving Mood/Affect: Patient reports their mood is better, affect is congruent and constricted. Suicidality/Homicidality: Patient denies having any homicidal ideation intent or plan. Denies any suicidal ideations intent or plan Perceptions: Patient denies any visual hallucinations and denies any auditory hallucinations. Though content/process: There is no evidence of delusional thought content Memory and concentration: AOX3, grossly intact for the purposes of this session. Judgment and insight: mildly improving IMPRESSIONS: Schizoaffective disorder, bipolar type PLAN: -Patient is admitted under involuntary status to MHU for stabilization of psychiatric symptoms and safety. Patient has not signed adult voluntary form or medication consent and is placed in patient's chart. Patient was previously on a deferral, A demand was filed with the court. Patient is now on a full order, as of 09/28/23 -Medications : decrease po Invega 3mg QHS for psychosis. Invega sustenna 234mg IM loading dose today. Next dose of Invega Sustenna 156 mg IM due 10/03, with [facility], maintenance dose of Invega Sustenna 156 mg IM will be due on 10/31. -Ativan and Haldol PRN for agitation/aggression -NRT -nicotine patch - on board for discharge planning. Encourage patient to participate in groups to work on coping skills. Discharge possible tomorrow.
[2023-09-29] MEDS: PALIPERIDONE 3 MG TAB.ER.24 PO SCH (20:02)
[2023-09-30 05:38] VITALS: RESP 16; TEMP 97.7
[2023-09-30 07:59] VITALS: BP 112/62; PULSE 94
--- NOTE | 2023-09-30 10:57 | P.DS ---
Providers Date of admission: 09/15/23 22:13 Expected date of discharge: 09/30/23 Attending physician: Vern Jorge MD Consults: 09/15/23 23:01 Consult Physician Routine Consulting Provider: Kameron Cisse Consult Reason/Comments: H&P Do you want consulting provider notified?: Yes Primary care physician: Stated None - Discharge Diagnosis(es) (1) Schizoaffective disorder, bipolar type Current Visit: Yes Status: Acute Priority: High Hospital Course: Admission HPI: Admission note was completed by proposal manager writer "Patient presented to the hospital on . As per EPS note, "He appears unkempt. Pts mother petitioned pt which states, ""He is convinced he is the antichrist. He refuses to kira emedication says it is witch craft. He has violent outbursts. Delusional and paranoid. He believes masons are praying curses over him". Pt is religiously preoccupied. He states from 8 years old to recent he believed that he was the antichrist. Per mother he still states that he is. He states, "I am a follower of Nghia, I know I am not George yet, but I want to be him". Pt was preaching the bible and quoting scripture during assessment. Pt admits that his parents are witches and he has yelled at his parents d/t denominational. He believes that he is cursed and being curses with intrusive thoughts of the anti george and wanting to verbalize "Hail Satan". Pt struggles with sleep d/t racing thoughts. He states he takes his Trazodone occasionally. RN did remind pt of his deferral order and that medications and treatment are required. He admits to on and off suicidal thoughts and believes those are a curse from Nghia as well. He has no plan or intent. Denies HI. Denies any ETOH or substance use." Upon today's interview, he states that when he last left the hospital, he was taking the medications, and only missed trazodone one dose. He states he believes he needs to be in a yazidi, not the hospital. He states he found himself, and needs to be in a yazidi. He was fairly religiously preoccupied and appeared to be internally preoccupied as well. He states the free masons are out to hurt him, but he states it's hard to explain what they are going to do to him. Pauses several times when asked about this, very religiously preoccupied. He states he has trouble sleeping, but his appetite is good. Patient denies any suicidal or homicidal ideations intent or plan. At this time patient denies any auditory or visual hallucinations. Patient denies any flight of ideas racing thoughts and increased in goal directed behavior. Patient denies using recreational drugs. " Hospital course: Upon admission to the unit patient was admitted on an active deferral involuntar yolanda, patient had a demand court hearing and it resulted in a court order for mental health treatment on 09/27. Patient got along well with other patients on the unit and followed unit protocol. Patient was compliant with the medications and denied any side effects throughout hospital course. Patient was started on Invega and increased to a dose of total of 9 mg daily for psychosis/mood stabilization. Patient was transitioned onto Invega Sustenna to help with compliance, given loading dose of 234 mg IM on 09/27. Patient will be due for next injection of 156 mg IM on 10/03, monthly maintenance dose of 156 mg IM will be on 10/31. Patient spoke of his stressors and engaged in therapy both group and individual. Patient was also seen by medical team for history and physical exam. Throughout the course of the hospitalization patient gradually improved with regards to psychosis, mood, mood stabilization, sleep and returned back to their baseline level of functioning. On the day of discharge patient denied any suicidal or homicidal ideations intent or plan denied any auditory or visual hallucinations. Patient endorsed wanting to live for his health and family. The patient denied any access to guns or weapons. Patient denied any paranoia and did not endorse any delusions. Patient does not have a significant history of substance abuse and was counseled on abstaining from all substances including alcohol and marijuana. Patient was also counseled on the medications and need for regular compliance and was encouraged to follow-up with their outpatient appointment for mental health and also for primary care. Prior to discharge a family meeting will be arranged by social media marketing analyst to answer any questions and ensure safety upon discharge. Patient will be discharged back to his mother's home. Mental status exam: General Appearance: Patient appears to be thin, unshaven, stated age is alert, pleasant, and cooperative. Patient is in no acute distress and has improved hygiene and grooming Behavior: Patient is calmly seated without any agitated behavior. Speech: Patient's speech is fluent and nonpressured. Mood/Affect: Patient reports their mood is "better", affect is congruent and euthymic. Suicidality/Homicidality: Patient denies having any suicidal or homicidal ideation intent or plan. Perceptions: Patient denies any auditory or visual hallucinations. Though content/process: There is no evidence of any delusional thought content and thought process is linear and goal-directed. Memory and concentration: AOX3, grossly intact for the purposes of this session. Can spell "WORLD" backwards correctly. Judgment and insight: Chronically poor, however has improved with guarded prognosis Impression: Schizoaffective disorder, bipolar type Plan: -Continue with discharge today as patient has improved and stabilized psychiatrically and is not currently an imminent threat to himself and/or others. Patient will remain at chronically elevated risk for harm to self and/or others due to his impulsivity and chronic mental illness. -Continue medications: Invega p.o. was discontinued. Patient will be resumed back on trazodone 150 mg nightly as needed for insomnia, Invega Sustenna 234 mg IM loading dose was given on 09/27, second dose of 156 mg IM is going to be due at [facility] on 10/03, monthly maintenance dose of 156 mg IM will be due on 10/31. -Patient was counseled on the need for medication compliance and appropriate follow-up at mental health and also primary care for medical issues. Patient verbalized understanding and agreed. -Social work to arrange for and conduct family meeting to ensure safety upon discharge and answer any questions/concerns. Social work also to arrange for patients follow up appointments with [facility] for psychiatric care along with follow up with primary care provider. -Patient counseled on abstaining from recreational drugs and marijuana and alcohol. Was informed/educated on the adverse effects on their physical and mental health. Patient verbally agreed and understood. -Patient was instructed to return to the hospital or seek immediate medical care if their psychiatric or medical symptoms do worsen or reoccur. Allergies Allergy/AdvReac Type Severity Reaction Status Date / Time hydromorphone HCl Allergy Intermediate Rash/Hives/ Verified 09/15/23 20:26 From Dilaudid Itching metoclopramide HCl AdvReac Severe Anxiety Verified 09/15/23 20:26 From Reglan Laboratory Results WBC 8.0 k/uL (3.8-10.6) 09/16/23 07:11 RBC 5.66 m/uL (4.30-5.90) 09/16/23 07:11 Hgb 16.7 gm/dL (13.0-17.5) 09/16/23 07:11 Hct 49.5 % (39.0-53.0) 09/16/23 07:11 MCV 87.5 fL (80.0-100.0) 09/16/23 07:11 MCH 29.5 pg (25.0-35.0) 09/16/23 07:11 MCHC 33.7 g/dL (31.0-37.0) 09/16/23 07:11 RDW 13.3 % (11.5-15.5) 09/16/23 07:11 Plt Count 205 k/uL (150-450) 09/16/23 07:11 MPV 7.6 09/16/23 07:11 Neutrophils % 57 % 09/16/23 07:11 Lymphocytes % 26 % 09/16/23 07:11 Monocytes % 7 % 09/16/23 07:11 Eosinophils % 9 % 09/16/23 07:11 Basophils % 0 % 09/16/23 07:11 Neutrophils # 4.5 k/uL (1.3-7.7) 09/16/23 07:11 Lymphocytes # 2.1 k/uL (1.0-4.8) 09/16/23 07:11 Monocytes # 0.5 k/uL (0-1.0) 09/16/23 07:11 Eosinophils # 0.7 k/uL (0-0.7) 09/16/23 07:11 Basophils # 0.0 k/uL (0-0.2) 09/16/23 07:11 Sodium 140 mmol/L (137-145) 09/16/23 07:11 Potassium 4.1 mmol/L (3.5-5.1) 09/16/23 07:11 Chloride 106 mmol/L (98-107) 09/16/23 07:11 Carbon Dioxide 26 mmol/L (22-30) 09/16/23 07:11 Anion Gap 8 mmol/L 09/16/23 07:11 BUN 19 mg/dL (9-20) 09/16/23 07:11 Creatinine 0.90 mg/dL (0.66-1.25) 09/16/23 07:11 Est GFR (CKD-EPI)AfAm >90 (>60 ml/min/1.73 sqM) 09/16/23 07:11 Est GFR (CKD-EPI)NonAf >90 (>60 ml/min/1.73 sqM) 09/16/23 07:11 Glucose 97 mg/dL (74-99) 09/16/23 07:[address] Glu mg/dL 105 mg/dL 09/16/23 07:11 Hemoglobin A1c 5.3 % (<=6.0) 09/16/23 07:11 Calcium 9.4 mg/dL (8.4-10.2) 09/16/23 07:11 Total Bilirubin 1.1 mg/dL (0.2-1.3) 09/16/23 07:11 AST 41 U/L (17-59) 09/16/23 07:11 ALT 38 U/L (4-49) 09/16/23 07:11 Alkaline Phosphatase 66 U/L (38-126) 09/16/23 07:11 Total Protein 6.8 g/dL (6.3-8.2) 09/16/23 07:11 Albumin 4.6 g/dL (3.5-5.0) 09/16/23 07:11 TSH 0.997 mIU/L (0.465-4.680) 09/16/23 07:11 Urine Color Yellow 09/15/23 23:53 Urine Appearance Clear (Clear) 09/15/23 23:53 Urine pH 6.0 (5.0-8.0) 09/15/23 23:53 Ur Specific [place] 1.033 (1.001-1.035) 09/15/23 23:53 Urine Protein Trace (Negative) H 09/15/23 23:53 Urine Glucose (UA) Negative (Negative) 09/15/23 23:53 Urine Ketones 2+ (Negative) H 09/15/23 23:53 Urine Blood Negative (Negative) 09/15/23 23:53 Urine Nitrite Negative (Negative) 09/15/23 23:53 Urine Bilirubin Negative (Negative) 09/15/23 23:53 Urine Urobilinogen <2.0 mg/dL (<2.0) 09/15/23 23:53 Ur Leukocyte Esterase Negative (Negative) 09/15/23 23:53 Urine Opiates Screen Not Detected (NotDetected) 09/15/23 23:53 Ur Oxycodone Screen Not Detected (NotDetected) 09/15/23 23:53 Urine Methadone Screen Not Detected (NotDetected) 09/15/23 23:53 Ur Barbiturates Screen Not Detected (NotDetected) 09/15/23 23:53 U Tricyclic Antidepress Not Detected (NotDetected) 09/15/23 23:53 Ur Phencyclidine Scrn Not Detected (NotDetected) 09/15/23 23:53 Ur Amphetamines Screen Not Detected (NotDetected) 09/15/23 23:53 U Methamphetamines Scrn Not Detected (NotDetected) 09/15/23 23:53 U Benzodiazepines Scrn Not Detected (NotDetected) 09/15/23 23:53 Urine Cocaine Screen Not Detected (NotDetected) 09/15/23 23:53 U Marijuana (THC) Screen Not Detected (NotDetected) 09/15/23 23:53 Influenza Type A (PCR) Not Detected (Not Detectd) 09/15/23 20:40 Influenza Type B (PCR) Not Detected (Not Detectd) 09/15/23 20:40 RSV (PCR) Not Detected (Not Detectd) 09/15/23 20:40 SARS-CoV-2 (PCR) Not Detected (Not Detectd) 09/15/23 20:40 Vital Signs Temp 97.7 F 09/30/23 05:13 Pulse 94 09/30/23 07:52 Resp 16 09/30/23 05:13 BP 112/62 09/30/23 07:52 Pulse Ox 97 09/26/23 08:42 FiO2 Patient Condition at Discharge: Stable Plan - Discharge Summary Discharge Rx Participant: No New Discharge Prescriptions: New Paliperidone IM [Invega Sustenna] 156 mg IM QMONTHLY #1 each traZODone HCL 150 mg PO HS PRN 30 Days #30 tablet PRN Reason: Insomnia Loratadine [Claritin] 10 mg PO DAILY tab Paliperidone IM [Invega Sustenna] 156 mg IM ONCE #1 ml Discontinued traZODone HCL [Desyrel] 200 mg PO HS 30 Days #60 tab ARIPiprazole IM [Abilify Maintena] 400 mg IM Q30D Discharge Medication List Loratadine [Claritin] 10 mg PO DAILY tab 09/30/23 [Rx] Paliperidone IM [Invega Sustenna] 156 mg IM ONCE #1 ml 09/30/23 [Rx] Paliperidone IM [Invega Sustenna] 156 mg IM QMONTHLY #1 each 09/30/23 [Rx] traZODone HCL 150 mg PO HS PRN 30 Days #30 tablet 09/30/23 [Rx] Follow up Appointment(s)/Referral(s): [facility] [Outside] - 10/04/23 11:00 am (10/04/2023 11:00AM - 12:00PM NARESH LOVE 10/07/2023 3:00PM - 4:00PM NARESH LOVE 10/13/2023 8:00AM - 9:00AM REYNALDO FERREIRA) [facility] [NON-STAFF] - 1 Week Patient Instructions/Handouts: Schizoaffective Disorder (DC), Psychotic Disorder (DC) Activity/Diet/Wound Care/Special Instructions: Avoid the use of street drugs and alcohol. Take all medications as prescribed. When you are in need of refills on your medications, please contact your medical provider and/or outpatient psychiatrist/provider to have this done. Please go to your scheduled outpatient appointment for aftercare treatment. If symptoms return or become worse, call the crisis line at and/or go to the nearest emergency room for evaluation. National Suicide Hotline 988. Discharge Disposition: HOME SELF-CARE
== END 2023-09-30 12:56 | disposition home or self-care (01) | DRG 885 ==
LOC: EC 17:03 → 3MHU 22:13
PROVIDERS: ADMIT Psychiatry & Neurology Psychiatry; ATTEND Psychiatry & Neurology Psychiatry
DX: F25.0 Schizoaffective disorder, bipolar type (principal); R45.851 Suicidal ideations; J45.909 Unspecified asthma, uncomplicated; Z56.0 Unemployment, unspecified; Z81.8 Family history of other mental and behavioral disorders; Z91.199 Patient's noncompliance with other medical treatment and regimen due to unspecified reason; Z91.51 Personal history of suicidal behavior; Z11.52 Encounter for screening for COVID-19; Z28.311 Partially vaccinated for COVID-19; Z28.21 Immunization not carried out because of patient refusal; Z71.3 Dietary counseling and surveillance; Z88.5 Allergy status to narcotic agent; Z88.8 Allergy status to other drugs, medicaments and biological substances
CPT/HCPCS: 80053; 80306; 81003; 82075; 83036; 84443; 85025; 87636; 99285

== ENCOUNTER 2024-04-09 23:22 | Emergency (ER) | payer OTHER | END 2024-04-10 00:22 | disposition left against medical advice (07) | LOC: EC 23:22 | CPT/HCPCS: 99499 ==

== ENCOUNTER 2024-04-12 17:59 | Inpatient (IN) | payer OTHER, MEDICAID ==
[2024-04-12 20:29] LABS: Amphetamine Screen,Urine Not Detected (NotDetected); Barbiturate Screen,Urine Not Detected (NotDetected); Benzodiazepines Screen,Urine Not Detected (NotDetected); Cocaine Screen,Urine Not Detected (NotDetected); Methadone Screen, Urine Not Detected (NotDetected); Opiate Screen,Urine Not Detected (NotDetected); Oxycodone Screen, Urine Not Detected (NotDetected); Phencyclidine Screen,Urine Not Detected (NotDetected); Tricyclic Antidepressant,Urine Not Detected (NotDetected); Urn Cannabinoid Scrn Not Detected (NotDetected)
--- NOTE | 2024-04-12 22:44 | ED ---
Psych HPI - General Chief Complaint: Psychiatric Symptoms Stated Complaint: petition/mental health Time Seen by Provider: 04/12/24 19:00 Source: patient, family, RN notes reviewed Mode of arrival: ambulatory - History of Present Illness Initial Comments: This is a 24-year-old male with history of schizophrenia petitioned for mental health evaluation. Patient presents today with his aunt. Pt reports he came to the ER 3 days ago after altercation with mother. Patient states after the altercation, his mother asked him to wait outside and called the police. The police brought him to the ER to be evaluated, however patient left AMA. He was notified today that he was petitioned by the police department to have a mental health evaluation. Patient states he follows outpatient with [facility]. Denies suicidal or homicidal ideation. Patient's aunt reports patient lives with his mother, however he will be staying with her after discharge. Patient denies any current symptoms or concerns. - Related Data Home Medications Medication Instructions Recorded Confirmed Doxylamine Succinate [Unisom] 50 mg PO HS 04/12/24 04/12/24 Paliperidone IM [Invega Sustenna] 234 mg IM Q28D 04/12/24 04/12/24 Allergies Allergy/AdvReac Type Severity Reaction Status Date / Time hydromorphone HCl Allergy Intermediate Rash/Hives/ Verified 04/12/24 18:20 [From Dilaudid] Itching metoclopramide HCl AdvReac Severe Anxiety Verified 04/12/24 18:20 [From Reglan] Review of Systems ROS Statement: Those systems with pertinent positive or pertinent negative responses have been documented in the HPI. ROS Other: All systems not noted in ROS Statement are negative. Past Medical History Past Medical History: Asthma Additional Past Medical History / Comment(s): RUPTURED APPENDEX 04/2015. cat allergies. History of Any Multi-Drug Resistant Organisms: None Reported Past Surgical History: Appendectomy, Tonsillectomy Past Anesthesia/Blood Transfusion Reactions: No Reported Reaction Past Psychological History: Anxiety, Depression, Schizophrenia Smoking Status: Never smoker Past Alcohol Use History: Occasional Past Drug Use History: None Reported - Past Family History Mother Family Medical History: No Reported History General Exam Limitations: no limitations General appearance: alert, in no apparent distress Head exam: Present: atraumatic, normocephalic, normal inspection Eye exam: Present: normal appearance, PERRL, EOMI. Absent: scleral icterus, conjunctival injection, periorbital swelling Respiratory exam: Present: normal lung sounds bilaterally. Absent: respiratory distress, wheezes, rales, rhonchi, stridor Cardiovascular Exam: Present: regular rate, normal rhythm, normal heart sounds. Absent: systolic murmur, diastolic murmur, rubs, gallop, clicks Neurological exam: Present: alert, oriented X3 Psychiatric exam: Present: normal affect, normal mood Skin exam: Present: warm, dry, intact, normal color. Absent: rash Course Vital Signs 04/12/24 18:17 Temperature 98.3 F Pulse Rate 86 Respiratory 18 Rate Blood Pressure 129/83 O2 Sat by Pulse 96 Oximetry Medical Decision Making - Medical Decision Making Was pt. sent in by a medical professional or institution (, PA, CONSUMER INSIGHT MANAGER, urgent care, hospital, or intermediate...) When possible be specific @ -No Did you speak to anyone other than the patient for history (EMS, parent, family, police, friend...)? What history was obtained from this source @ -Patient's aunt supplemented history Did you review nursing and triage notes (agree or disagree)? Why? @ -I reviewed and agree with nursing and triage notes Were old charts reviewed (outside hosp., previous admission, EMS record, old EKG, old radiological studies, urgent care reports/EKG's, intermediate records)? Report findings @ -No old charts were reviewed Differential Diagnosis (chest pain, altered mental status, abdominal pain women, abdominal pain men, vaginal bleeding, weakness, fever, dyspnea, syncope, headache, dizziness, GI bleed, back pain, seizure, CVA, palpatations, mental health, musculoskeletal)? @ -Differential Mental Health Depression, anxiety, bipolar, psychosis, schizophrenia, borderline personality, situational depression, adjustment disorder, behavioral disorder, brain tumor, malingering, substance abuse, encephalopathy, medication reaction, dementia, hypothyroidism, degenerative neurologic disorder, lupus.... This is not meant to be all-inclusive list EKG interpreted by me (3pts min.). @ -None X-rays interpreted by me (1pt min.). @ -None done CT interpreted by me (1pt min.). @ -None done U/S interpreted by me (1pt. min.). @ -None done What testing was considered but not performed or refused? (CT, X-rays, U/S, labs)? Why? @ -None What meds were considered but not given or refused? Why? @ -None Did you discuss the management of the patient with other professionals (professionals i.e. , PA, CONSUMER INSIGHT MANAGER, lab, RT, psych nurse, social work nurse, obedience trainer, teacher, ordnance officer, field nurse case manager)? Give summary @ -EPS recommended inpatient psych admission for acute psychosis, will need cert Was smoking cessation discussed for >3mins.? @ -No Was critical care preformed (if so, how long)? @ -No Were there social determinants of health that impacted care today? How? (Homelessness, low income, unemployed, alcoholism, drug addiction, transportation, low edu. Level, literacy, decrease access to med. care, snf, rehab)? @ -No Was there de-escalation of care discussed even if they declined (Discuss DNR or withdrawal of care, Hospice)? DNR status @ -No What co-morbidities impacted this encounter? (DM, HTN, Smoking, COPD, CAD, Cancer, CVA, ARF, Chemo, Hep., AIDS, mental health diagnosis, sleep apnea, morbid obesity)? @ -None Was patient admitted / discharged? Hospital course, mention meds given and route, prescriptions, significant lab abnormalities, going to OR and other pertinent info. @ -Admitted. This is a 24-year-old male with history of schizophrenia petitioned by police department for mental health evaluation. Patient denies an y current suicidal ideation or homicidal ideation, no medical complaints today. He was seen by EPS who recommends inpatient psych admission at this time for acute psychosis. Case was discussed with my ED attending Dr. Andrews. Undiagnosed new problem with uncertain prognosis? @ -No Drug Therapy requiring intensive monitoring for toxicity (Heparin, Nitro, Insulin, Cardizem)? @ -No Were any procedures done? @ -No Diagnosis/symptom? @ -Acute psychosis Acute, or Chronic, or Acute on Chronic? @ -Acute Uncomplicated (without systemic symptoms) or Complicated (systemic symptoms)? @ -Complicated Side effects of treatment? @ -No Exacerbation, Progression, or Severe Exacerbation? @ -No Poses a threat to life or bodily function? How? (Chest pain, [place], [place], pneumonia, PE, COPD, DKA, ARF, appy, cholecystitis, CVA, Diverticulitis, Homicidal, Suicidal, threat to staff... and all critical care pts) @ -Yes - Lab Data Lab Results 04/12/24 04/12/24 Range/Units 19:43 20:09 Urine Opiates Screen Not Detected (NotDetected) Ur Oxycodone Screen Not Detected (NotDetected) Urine Methadone Screen Not Detected (NotDetected) Ur Barbiturates Screen Not Detected (NotDetected) U Tricyclic Antidepress Not Detected (NotDetected) Ur Phencyclidine Scrn Not Detected (NotDetected) Ur Amphetamines Screen Not Detected (NotDetected) U Methamphetamines Scrn Not Detected (NotDetected) U Benzodiazepines Scrn Not Detected (NotDetected) Urine Cocaine Screen Not Detected (NotDetected) U Marijuana (THC) Screen Not Detected (NotDetected) Influenza Type A (PCR) Not Detected (Not Detectd) Influenza Type B (PCR) Not Detected (Not Detectd) RSV (PCR) Not Detected (Not Detectd) SARS-CoV-2 (PCR) Not Detected (Not Detectd) Disposition Clinical Impression: Acute psychosis Disposition: ADMITTED IP TO THIS HOSP Referrals: None,Stated [Primary Care Provider] - 1-2 days Time of Disposition: 22:45
[2024-04-12] MEDS ORDERED: MAG HYDROX/AL HYDROX/SIMETH 355 ML BOTTLE PO PRN (23:15)
[2024-04-12] MEDS ORDERED: HALOPERIDOL LACTATE 5 MG/ML 1 ML VIAL IM PRN (23:15)
[2024-04-12] MEDS ORDERED: MAGNESIUM HYDROXIDE 2,400 MG/30 ML CUP PO PRN (23:15)
[2024-04-12] MEDS ORDERED: LORazepam 2 MG/ML INJ IM PRN (23:15)
[2024-04-12] MEDS ORDERED: LORazepam 1 MG TAB PO PRN (23:15)
[2024-04-12] MEDS ORDERED: haloperidoL 5 MG TAB PO PRN (23:15)
[2024-04-13 00:44] LABS: Appearance,Urine Cloudy (Clear); Bilirubin,Urine Negative (Negative); Blood,Urine Negative (Negative); Color,Urine Yellow; Glucose,Urine (UA) Negative (Negative); Ketones,Urine Negative (Negative); Leukocyte Esterase,Urine Negative (Negative); Mucus,Urine Many /hpf; Nitrite,Urine Negative (Negative); Protein,Urine Trace (Negative); RBC,Urine <1 /hpf (0-5); Specific Gravity,Urine 1.033 (1.001-1.035); Squamous Epithelial Cell,Urine 2 /hpf (0-4); Urobilinogen,Urine <2.0 mg/dL (<2.0); WBC,Urine 2 /hpf (0-5)
[2024-04-13] MEDS: NICOTINE 14MG/24HR PATCH TRANSDERM SCH (10:06)
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
[2024-04-13] MEDS: SERTRALINE 50 MG TAB PO SCH (12:33)
[2024-04-13 12:49] LABS: ALT 74 U/L (4-49); AST 45 U/L (17-59); African American GFR (CKD) >90 (>60 ml/min/1.73 sqM); Albumin 4.9 g/dL (3.5-5.0); Alkaline Phosphatase 65 U/L (38-126); Anion Gap 8 mmol/L; Bilirubin, Delta 0.2 mg/dL (0.0-0.2); Bilirubin,Unconjugated 0.5 mg/dL (0.0-1.1); Blood Urea Nitrogen 16 mg/dL (9-20); Calcium 9.8 mg/dL (8.4-10.2); Carbon Dioxide 26 mmol/L (22-30); Chloride 108 mmol/L (98-107); Glucose 82 mg/dL (74-99); Non-African American GFR(CKD) >90 (>60 ml/min/1.73 sqM); Potassium 4.8 mmol/L (3.5-5.1); Sodium 142 mmol/L (137-145); Total Bilirubin 0.7 mg/dL (0.2-1.3); Total Protein 7.2 g/dL (6.3-8.2)
[2024-04-13 15:10] LABS: Basophils % (A) 0 %; Eosinophils # (A) 0.7 k/uL (0-0.7); Eosinophils % (A) 10 %; HCT 49.3 % (39.0-53.0); HGB 16.3 gm/dL (13.0-17.5); Lymphocytes # (A) 2.2 k/uL (1.0-4.8); Lymphocytes % (A) 31 %; MCHC 33.1 g/dL (31.0-37.0); MCV 87.7 fL (80.0-100.0); Mean Platelet Volume 8.1; Monocytes # (A) 0.4 k/uL (0-1.0); Monocytes % (A) 6 %; Neutrophils # (A) 3.7 k/uL (1.3-7.7); Neutrophils % (A) 51 %; Platelet Count 238 k/uL (150-450); RBC 5.63 m/uL (4.30-5.90); RDW 13.8 % (11.5-15.5); WBC 7.2 k/uL (3.8-10.6)
[2024-04-13 20:01] LABS: Chol/HDL Ratio 3.82 Ratio; LDL Cholesterol,Calculated 59.8 mg/dL (0.0-131.0)
[2024-04-13] MEDS: diphenhydrAMINE 50 MG CAP PO SCH (20:58)
--- NOTE | 2024-04-14 14:51 | P.PN ---
Progress Note - Text Interval history: Patient was seen [wandering the hallways] and was directable and agreeable to speak with marketing underwriter. reports paranoia about his parents. Denies agitation. Reports good appetite. At this time patient denies any suicidal or homicidal ideations intent or plan. Denies any Auditory or visual hallucinations. Patient denies any side effects from the medications and has been compliant with meds. Mental status exam: General Appearance: [Patient appears to be stated age is alert, directable, and cooperative.] Behavior: [No agitated behavior. Patient is calm and directable] Speech: Patient's speech is fluent and nonpressured. Mood/Affect: Mood is improving mildly, affect is congruent and constricted. Suicidality/Homicidality: Patient denies having any suicidal or homicidal ideation intent or plan. Perceptions: Patient denies any auditory or visual hallucinations. Though content/process: paranoid delusions elicited Memory and concentration: AOX3, grossly intact for the purposes of this session Judgment and insight: improving mildly Assessment/Plan: Continue with current diagnosis. Patient continues to meet criteria for inpatient psychiatric admission for symptom stabilization and safety.[Patient will be maintained on current psychotropic medication regimen.] Monitor for medication compliance and for any psychotropic medication side effects. Will continue to monitor ongoing response to treatment. Encouraged participation in milieu.
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
[2024-04-15] MEDS: SYMBICORT 160-4.5 MCG INHALER (MHU) INHALATION SCH (09:57)
[2024-04-15] MEDS: ALBUTEROL INHALER 60 PUFF/8 GM INHALER (MHU) INHALATION PRN (21:19)
--- NOTE | 2024-04-15 22:38 | P.PN ---
Progress Note - Text Interval history: Patient was seen [wandering the hallways] and was directable and agreeable to speak with screenplay writer. At this time patient denies any suicidal or homicidal ideations intent or plan. Denies any Auditory or visual hallucinations. Patient denies any side effects from the medications and has been compliant with meds. Mental status exam: General Appearance: [Patient appears to be stated age is alert, directable, and cooperative.] Behavior: [No agitated behavior. Patient is calm and directable] Speech: Patient's speech is fluent and nonpressured. Mood/Affect: Mood is improving mildly, affect is congruent and constricted. Suicidality/Homicidality: Patient denies having any suicidal or homicidal ideation intent or plan. Perceptions: Patient denies any auditory or visual hallucinations. Though content/process: no delusions, goal directed Memory and concentration: AOX3, grossly intact for the purposes of this session Judgment and insight: improving mildly Assessment/Plan: Continue with current diagnosis. Patient continues to meet criteria for inpatient psychiatric admission for symptom stabilization and safety.[Patient will be maintained on current psychotropic medication regimen.] Monitor for medication compliance and for any psychotropic medication side effects. Will continue to monitor ongoing response to treatment. Encouraged participation in milieu.
--- NOTE | 2024-04-16 12:09 | P.PN ---
Progress Note - Text Progress Note Date: 04/16/24 Interval History: Patient was seen in his room and was directable and agreeable to speak with wr iter in the office. He states he is doing well today. He is seated, with poor posture, looking at the floor. Rarely makes any eye contact. He seems to to be internally preoccupied. He states that he is sleeping well at night. He endorses a good appetite. He is mainly secluding to his room. At this time patient denies any suicidal or homicidal ideations, intent or plan. Patient denies any auditory, visual hallucinations and denies any paranoia or delusions. Patient denies any side effects from the medications and has been compliant with meds. MENTAL STATUS EXAM: General Appearance: Patient appears to be stated age is alert, directable, and attempts to cooperate. Patient appears to have adequate hygiene and grooming. Behavior: Patient is seated without any agitated behavior. Very poor eye contact. Appears to be internally preoccupied Speech: Patient's speech is fluent and nonpressured. Low tone. [place]. Mood/Affect: Patient reports their mood is depressed, affect is congruent and c onstricted. Suicidality/Homicidality: Patient denies having any homicidal ideation intent or plan. Denies any suicidal ideations intent or plan Perceptions: Patient denies any visual hallucinations and denies any auditory hallucinations. Thought blocking, Disorganized thoughts. Though content/process: There is evidence of delusional thought content patient believes his parents are out to get him. mildly improving Memory and concentration: AOX3, grossly intact for the purposes of this session. Judgment and insight: Poor IMPRESSIONS: Schizoaffective disorder non adherence to medication PLAN: -Patient is admitted under involuntary status to [facility] for stabilization of psychiatric symptoms and safety. Patient has not signed adult voluntary form and did sign the medication consent and is placed in patient's chart. A second cert was filled out by sign writer letterer or painter, and will be filed with the court. -Medications : increase Prolixin 3mg bid for psychosis, benedryl 50mg qhs for sleep, trazodone 50mg qhs prn for sleep, Zoloft 50mg daily for mood/anxiety -Ativan and Haldol PRN for agitation/aggression -NRT -nicotine patch -SW on board for discharge planning. Encourage patient to participate in groups to work on coping skills. WIll await deferral and hearing
--- NOTE | 2024-04-17 10:27 | P.PN ---
Progress Note - Text Progress Note Date: 04/17/24 Interval History: Patient was seen in his room and was directable and agreeable to speak with wr iter in the office. He states he is doing well today, he remains fairly concrete, continues to have fairly poor eye contact. Claims that he has been speaking with his mother, states that he has no issues at all with her. Appears to be less internally preoccupied. He states that he is sleeping well at night. Some groups during the day. He endorses a good appetite. At this time patient denies any suicidal or homicidal ideations, intent or plan. Patient denies any auditory, visual hallucinations and denies any paranoia or delusions. Patient denies any side effects from the medications and has been compliant with meds. MENTAL STATUS EXAM: General Appearance: Patient appears to be stated age is alert, directable, and attempts to cooperate. Patient appears to have adequate hygiene and grooming. Behavior: Patient is seated without any agitated behavior. poor eye contact. He appears to be less internally preoccupied Speech: Patient's speech is fluent and nonpressured. Low tone. [place]. Improving mildly Mood/Affect: Patient reports their mood is improving, affect is congruent and constricted. Suicidality/Homicidality: Patient denies having any homicidal ideation intent or plan. Denies any suicidal ideations intent or plan Perceptions: Patient denies any visual hallucinations and denies any auditory hallucinations. Though content/process: There is no evidence of delusional thought content. Fairly concrete, improving mildly. Memory and concentration: AOX3, grossly intact for the purposes of this session. Judgment and insight: [place] poor, improving mildly IMPRESSIONS: Schizoaffective disorder non adherence to medication PLAN: -Patient is admitted under involuntary status to [facility] for stabilization of psychiatric symptoms and safety. Patient was involuntary, he ended up signing a deferral with his civil attorney on 04/17. Agreeing to treatment. -Medications : continue Prolixin 3mg bid for psychosis, will need to transition patient onto [facility] tomorrow. Benedryl 50mg qhs for sleep, trazodone 50mg qhs prn for sleep, Zoloft 50mg daily for mood/anxiety -Ativan and Haldol PRN for agitation/aggression -NRT -nicotine patch -SW on board for discharge planning. Encourage patient to participate in groups to work on coping skills. Patient signed a deferral with his civil attorney on 04/17. Likely discharge back home once patient is transition onto [facility]. Hopeful for discharge
[2024-04-18 07:13] VITALS: TEMP 97.6
--- NOTE | 2024-04-18 11:54 | P.PN ---
Progress Note - Text Progress Note Date: 04/18/24 Interval History: Patient was seen in his room and was directable and agreeable to speak with wr iter in the office. He states he is doing better today, he remains fairly concrete. He denies any paranoia, or mandaen preoccupation Appears to be less internally preoccupied. He states that he is sleeping well at night. He is going to some groups during the day. He endorses a good appetite. Patient offers no other complaints. At this time patient denies any suicidal or homicidal ideations, intent or plan. Patient denies any auditory, visual hallucinations and denies any paranoia or delusions. Patient denies any side effects from the medications and has been compliant with meds. MENTAL STATUS EXAM: General Appearance: Patient appears to be stated age is alert, directable, and attempts to cooperate. Patient appears to have adequate hygiene and grooming. Behavior: Patient is seated without any agitated behavior. poor eye contact. He appears to be less internally preoccupied Speech: Patient's speech is fluent and nonpressured. Low tone. [place]. Improving mildly Mood/Affect: Patient reports their mood is improving, affect is congruent and constricted. mildly improving Suicidality/Homicidality: Patient denies having any homicidal ideation intent or plan. Denies any suicidal ideations intent or plan Perceptions: Patient denies any visual hallucinations and denies any auditory hallucinations. Though content/process: There is no evidence of delusional thought content. Fairly concrete, improving mildly Memory and concentration: AOX3, grossly intact for the purposes of this session. Judgment and insight: chronically poor, improving mildly IMPRESSIONS: Schizoaffective disorder non adherence to medication PLAN: -Patient is admitted under involuntary status to [facility] for stabilization of psychiatric symptoms and safety. Patient was involuntary, he ended up signing a deferral with his defense attorney on 04/17. Agreeing to treatment. -Medications : continue Prolixin 3mg bid for psychosis, Add Prolixin D 25mg IM today, 04/18, every 2 weeks, next dose due 05/02, Benedryl 50mg qhs for sleep, trazodone 50mg qhs prn for sleep, Zoloft 50mg daily for mood/anxiety -Ativan and Haldol PRN for agitation/aggression -NRT -nicotine patch -SW on board for discharge planning. Encourage patient to participate in groups to work on coping skills. Patient signed a deferral with his defense attorney on 04/17. Hopeful for discharge tomorrow vs Tuesday. Patient is not able to get into a [facility] through [facility].
[2024-04-18] MEDS: fluPHENAZine DECANOATE 25 MG/ML 5ML MDV IM SCH (13:47)
[2024-04-18] MEDS: traZODone HCL 50 MG TAB PO PRN (21:03)
[2024-04-19 06:55] VITALS: BP 91/51; PULSE 57; RESP 16
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
== END 2024-04-19 15:10 | disposition home or self-care (01) | DRG 885 ==
LOC: EC 17:59 → 3MHU 23:12
PROVIDERS: ADMIT Psychiatry & Neurology Psychiatry; ATTEND Psychiatry & Neurology Psychiatry
DX: F25.0 Schizoaffective disorder, bipolar type (principal); J45.40 Moderate persistent asthma, uncomplicated; F41.9 Anxiety disorder, unspecified; F32.A Depression, unspecified; F17.200 Nicotine dependence, unspecified, uncomplicated; Z11.52 Encounter for screening for COVID-19; Z91.51 Personal history of suicidal behavior; Z91.199 Patient's noncompliance with other medical treatment and regimen due to unspecified reason; Z56.0 Unemployment, unspecified; Z81.8 Family history of other mental and behavioral disorders; Z79.899 Other long term (current) drug therapy; Z88.5 Allergy status to narcotic agent; Z88.8 Allergy status to other drugs, medicaments and biological substances
CPT/HCPCS: 80053; 80061; 80306; 81001; 82075; 82248; 83036; 84443; 85025; 87636; 99285